=== PATIENT | male | born 1970 | race Caucasian/White ===

== ENCOUNTER 2023-04-21 07:18 | Outpatient (OUT) | payer OTHER, SELFPAY ==
[2023-04-21 07:45] LABS: Estimated Average Glucose 108 mg/dL; Glycohemoglobin A1C 5.4 % (4.5-6.2)
[2023-04-21 08:14] LABS: Basophils Absolute Auto 0.1 10^3/uL (0.0-0.1); Basophils Percent Auto 0.9 % (0.2-2.0); Eosinophils Absolute Auto 0.8 10^3/uL (0.0-0.7); Eosinophils Percent Auto 6.1 % (0.9-7.0); Hematocrit 46.2 % (42.0-54.0); Hemoglobin 15.1 g/dL (14.0-18.0); Immature Granulocytes Abs Auto 0.04 10^3/uL (0.00-0.03); Immature Granulocytes Pct Auto 0.3 % (0.0-0.5); Lymphocytes Absolute Auto 3.7 10^3/uL (1.2-3.8); Lymphocytes Percent Auto 29.5 % (20.5-60.0); Mean Corpuscular HGB Conc 32.7 g/dL (29.9-35.2); Mean Corpuscular Hemoglobin 28.9 pg (25.9-34.0); Mean Corpuscular Volume 88.5 fL (80.0-94.0); Mean Platelet Volume 9.7 fL (9.5-13.5); Monocytes Absolute Auto 0.8 10^3/uL (0.3-0.8); Monocytes Percent Auto 6.1 % (1.7-12.0); Neutrophils Absolute Auto 7.2 10^3/uL (1.4-6.5); Neutrophils Percent Auto 57.1 % (43.0-75.0); Platelet Count 386 10^3/uL (150-450); Red Blood Count 5.22 10^6/uL (4.70-6.10); Red Cell Distribution Width 13.3 % (11.0-15.0); White Blood Count 12.6 10^3/uL (4.0-11.0)
[2023-04-21 08:53] LABS: Free T4 0.92 ng/dL (0.76-1.46)
[2023-04-21 09:02] LABS: Alanine Aminotransferase 51 U/L (16-63); Albumin Globulin Ratio 0.9; Albumin Level 3.4 g/dL (3.4-5.0); Alkaline Phosphatase 113 U/L (46-116); Anion Gap 13.6; Aspartate Amino Transferase 22 U/L (15-37); BUN Creatinine Ratio 10.5; Bilirubin Total 0.3 mg/dL (0.2-1.0); Calcium 8.7 mg/dL (8.5-10.1); Carbon Dioxide 28.3 mmol/L (21.0-32.0); Chloride 105 mmol/L (98-107); Chol HDL Ratio 4.7; Cholesterol 178 mg/dL (<=200); Estimated GFR (African America >60 (>=60); Estimated GFR (Non-African Ame >60 (>=60); Globulin 3.9 g/dL; Glucose 107 mg/dL (74-106); HDL Cholesterol 38 mg/dL (40-60); Potassium 3.9 mmol/L (3.5-5.1); Prostate Specific Antigen Scrn 1.87 ng/mL (<=4.00); Sodium 143 mmol/L (136-145); Thyroid Stimulating Hormone 1.331 uIU/mL (0.358-3.740); Total Protein 7.3 g/dL (6.4-8.2); Triglycerides 100 mg/dL (<=150); Uric Acid 6.8 mg/dL (3.5-7.2)
== END 2023-04-21 07:19 | disposition home or self-care (01) ==
PROVIDERS: PCP Family Medicine; Visit Provider Family Medicine
DX: Z00.00 Encounter for general adult medical examination without abnormal findings (principal); E78.5 Hyperlipidemia, unspecified; R73.09 Other abnormal glucose; Z12.5 Encounter for screening for malignant neoplasm of prostate; Z12.12 Encounter for screening for malignant neoplasm of rectum
CPT/HCPCS: 36415; 80053; 80061; 83036; 84436; 84439; 84443; 84550; 85025; G0103

== ENCOUNTER 2024-02-22 06:32 | Outpatient (OUT) | payer OTHER, SELFPAY ==
--- OUTSIDE RECORDS SUMMARY | 2024-02-22 06:35 | XMS_ITS | CCD ---
Author Organization [facility] Care Team Providers Care Batch Operator Name Role Phone DONALDO, DR VALDEZ Consulting Unavailable PAVANY, DR VALDEZ Primary Care Unavailable HOY, DR VALDEZ Admitting Unavailable HOY, DR VALDEZ Attending Unavailable HOY, DR VALDEZ Primary Care Unavailable HOY, DR VALDEZ Admitting Unavailable HOY, DR VALDEZ Attending Unavailable HOY, DR VALDEZ Consulting Unavailable HOY, DR VALDEZ Primary Care Unavailable HOY, DR VALDEZ Admitting Unavailable HOY, DR VALDEZ Attending Unavailable HOY, DR VALDEZ Consulting Unavailable PAVANY, DR VALDEZ Primary Care Unavailable HOY, DR VALDEZ Admitting Unavailable HOY, DR VALDEZ Attending Unavailable HOY, DR VALDEZ Attending Unavailable HOY, DR VALDEZ Consulting Unavailable HOY, DR VALDEZ Primary Care Unavailable HOY, DR VALDEZ Admitting Unavailable ALDA WATKINS Consulting Unavailable Allergies Allergy Classification Reported Allergen(s) Allergy Type Date of Onset Reaction(s) Facility (1 source) Acetaminophen / HYDROcodone Drug Allergy 4 [facility] Repository (1 source) Codeine Drug Allergy 4 [facility] Repository (1 source) methylPREDNISolone Drug Allergy 4 [facility] Repository (1 source) zolpidem Drug Allergy 4 [facility] Repository Problems Problem Classification Problem Date Documented Da te Episodic/Chronic Other screening for suspected conditions (not mental disorders or infectious disease) (2 sources) Encounter for screening for malignant neoplasm of prostate; Translations: [Other specified abnormal findings of blood chemistry] Onset: 06-01-2021 Episodic Results Test Name Value Interpretation Reference Range Facility CT LUNG CANCER SCREENINGon 0 02-25-[address] Low Dose Lung Cancer Screening History: Screening for lung cancer, smoking. Comparison: None Technique: Helical acquisition Low dose CT chest. Images reviewed in lung, soft tissue and bone windows. Findings: [All follow up of nodules are based on ACR guidelines for lung cancer screening and measurements of each nodule size must be the mean of the longest 2 axial plane perpendiculars] Nodules: The largest and/or fastest of these nodule(s) are as follows: No suspicious pulmonary nodules by size criteria. There is a calcified granuloma in the left upper lobe on image 40. Emphysema: Moderate centrilobular and paraseptal, including the paramediastinal regions and with some bullous changes in the lung apices. Mosaic attenuation: No Bronchial wall thickening: No. Bronchiectasis: No Coronary artery calcium: Minimal Other portions of the chest: Normal size heart, thoracic aorta and pulmonary artery. No suspicious lymphadenopathy. Left hilar calcified lymph nodes representing sequelae of granulomatous disease. Upper abdomen: Limited. Low-density is otherwise simple appearing right renal cyst is only partially seen. Bones: No suspicious lesion Impression: 1. ACR Assessment Category: Lung-RADS Category 2. Benign appearance or behavior. . Recommendation: Lung-RADS Category 2. Benign appearance or behavior. Recommendation: continue annual screening. . Download the LungRADS Assessment Categories table at this site: [email or web address] [email or web address] Electronically authenticated by: ALDA WATKINS Date: 2022-02-25 17:52 Normal [facility] INSULINon 02-20-2022 Insulin 23.0 uIU/mL Normal 2.6-24.9 [facility] Comment on above: Performed By: #### I NSULIN #### [facility] [address] [address] [address] Dawna Murillo CBC AUTO DIFFon 02-18-2022 BASO # 0.1 103/ul Normal 0.0-0.1 [facility] Comment on above: Performed By: #### C BC #### [facility] [address] [place], [place] [address] Dr. Dawna Murillo Basophils/100 WBC (Bld) 0.8 % Normal 0.2-2.0 [facility] Comment on above: Performed By: #### C BC #### [facility] [address] [place], [place] [address] Dr. Dawna Murillo EO # 0.9 103/ul Critically high 0.0-0.7 [facility] Comment on above: Performed By: #### C BC #### [facility] [address] [place] [address] Dr. Dawna Murillo Eosinophils/100 WBC (Bld) 6.2 % Normal 0.9-7.0 [facility] Comment on above: Performed By: #### C BC #### [facility] [address] [place] [address] Dr. Dawna Murillo Erythrocyte distribution width (RBC) [Ratio] 13.1 % Normal 11.0-15.0 [facility] Comment on above: Performed By: #### C BC #### [facility] [address] [place] [address] Dr. Dawna Murillo Hematocrit (Bld) [Volume fraction] 47.3 % Normal 42.0-54.0 [facility] Comment on above: Performed By: #### C BC #### [facility] [address] [place] [address] Dr. Dawna Murillo Hemoglobin (Bld) [Mass/Vol] 16.0 g/dL Normal 14.0-18.0 [facility] Comment on above: Performed By: #### C BC #### [facility] [address] [place] [address] Dr. Dawna Murillo IG # 0.03 10e3/ul Normal 0.00-0.03 [facility] Comment on above: Performed By: #### C BC #### [facility] [address] [place] [address] Dr. Dawna Murillo IG % 0.2 % Normal 0.0-0.5 [facility] Comment on above: Performed By: #### C BC #### [facility] [address] [place] [address] Dr. Dawna Murillo LYMPH # 3.2 103/ul Normal 1.2-3.8 [facility] Comment on above: Performed By: #### C BC #### [facility] [address] [place] [address] Dr. Dawna Murillo Lymphocytes/100 WBC (Bld) 21.1 % Normal 20.5-60.0 [facility] Comment on above: Performed By: #### C BC #### [facility] [address] [place] [address] Dr. Dawna Murillo MANUAL DIFF REQ NO Normal [facility] Comment on above: Performed By: #### C BC #### [facility] [address] [place] [address] Dr. Dawna Murillo MCH (RBC) [Entitic mass] 28.8 pg Normal 25.9-34.0 [facility] Comment on above: Performed By: #### C BC #### [facility] [address] [place] [address] Dr. Dawna Murillo MCHC (RBC) [Mass/Vol] 33.8 g/dL Normal 29.9-35.2 [facility] Comment on above: Performed By: #### C BC #### [facility] [address] [place] [address] Dr. Dawna Murillo MCV (RBC) [Entitic vol] 85.2 fL Normal 80.0-94.0 [facility] Comment on above: Performed By: #### C BC #### [facility] [address] [place] [address] Dr. Dawna Muirllo MONO # 0.9 103/ul Critically high 0.3-0.8 [facility] Comment on above: Performed By: #### C BC #### [facility] [address] [place] [address] Dr. Dawna Murillo Monocytes/100 WBC (Bld) 6.0 % Normal 1.7-12.0 [facility] Comment on above: Performed By: #### C BC #### [facility] [address] [place] [address] Dr. Dawna Murillo NEUT # 9.9 103/ul Critically high 1.4-6.5 [facility] Comment on above: Performed By: #### C BC #### [facility] [address] [place] [address] Dr. Dawna Murillo Neutrophils/100 WBC (Bld) 65.7 % Normal 43.0-75.0 [facility] Comment on above: Performed By: #### C BC #### [facility] [address] [address] [address] Dawna Murillo Platelet mean volume (Bld) [Entitic vol] 8.6 fL Critically low 9.5-13.5 [facility] Comment on above: Performed By: #### C BC #### [facility] [address] [address] [address] Dawna Murillo PLT 424 103/ul Normal 150-450 [facility] Comment on above: Performed By: #### C BC #### [facility] [address] [address] [address] Dawna Murillo RBC 5.55 106/ul Normal 4.70-6.10 [facility] Comment on above: Performed By: #### C BC #### [facility] [address] [place] [address] Dr. Dawna Murillo WBC 15.1 103/ul Critically high 4.0-11.0 [facility] Comment on above: Performed By: #### C BC #### [facility] [address] [place] [address] Dr. Dawna Murillo GLYCOHEMOGLOBIN A1Con 2022 ADA RECOMMENDATION SEE BELOW Normal [facility] Comment on above: Result Comment: ADA RECOMMENDED LIMIT 4.0 - 6.0 ADA THERAPEUTIC TARGET < 7.0 ACTION SUGGESTED > 7.0 Performed By: #### A 1C #### [facility] [address] [place] [address] Dr. Dawna Murillo Glucose [Mass/Vol] 105 mg/dL Normal [facility] Comment on above: Performed By: #### A 1C #### [facility] [address] [place] [address] Dr. Dawna Murillo HbA1c (Bld) [Mass fraction] 5.3 % Normal 4.5-6.2 [facility] Comment on above: Performed By: #### A 1C #### [facility] [address] [place] [address] Dr. Dawna Murillo LIPID PROFILEon 02-18-2022 CHOL-HDL RATIO NORM SEE BELOW Normal [facility] Comment on above: Result Comment: 3.3 - 4.4 LOW RISK 4.4 - 7.1 AVERAGE RISK 7.1 - 11.0 MODERATE RISK >11.0 HIGH RISK Performed By: #### O BSCRN #### [facility] [address] [address] [address] Dawna Murillo Cholesterol [Mass/Vol] 153 mg/dL Normal <=200 [facility] Comment on above: Performed By: #### O BSCRN #### [facility] [address] [address] [address] Dawna Murillo Cholesterol in HDL [Mass/Vol] 37 mg/dL Critically low 40-60 [facility] Comment on above: Performed By: #### O BSCRN #### [facility] [address] [address] [address] Dawna Murillo Cholesterol in LDL [Mass/Vol] 93.2 mg/dL Normal [facility] Comment on above: Performed By: #### O BSCRN #### [facility] [address] [address] [address] Dawna Murillo Cholesterol.total/Cho lesterol in HDL [Mass ratio] 4.1 {ratio} Normal [facility] Comment on above: Performed By: #### O BSCRN #### [facility] [address] [address] [address] Dawna Murillo HDL NORMAL > or = 60 mg/dl - LO W CARDIOVASCULAR RISK <40 mg/dl - HIGH CARDIOVASCULAR RISK Normal [facility] Comment on above: Performed By: #### O BSCRN #### [facility] [address] [address] [address] Dawna Murillo LDL CALC NORMAL SEE BELOW Normal [facility] Comment on above: Result Comment: <100 mg/dl OPTIMAL 100 - 129 mg/dl NEAR OR ABOVE OPTIMAL 130 - 159 mg/dl BORDERLINE HIGH 160 - 189 mg/dl HIGH >190 mg/dl VERY HIGH Performed By: #### O BSCRN #### [facility] [address] [address] [address] Dawna Murillo Triglyceride [Mass/Vol] 114 mg/dL Normal <=150 [facility] Comment on above: Performed By: #### O BSCRN #### [facility] [address] [address] [address] Dawna Murillo VLDL CALC 22.8 mg/dL Normal [facility] Comment on above: Performed By: #### O BSCRN #### [facility] [address] [address] [address] Dawna Murillo PROF 14(COMP METB)on 023 Albumin [Mass/Vol] 3.7 g/dL Normal 3.4-5.0 [facility] Comment on above: Performed By: #### O BSCRN #### [facility] [address] [address] [address] Dawna Murillo Albumin/Globulin [Mass ratio] 0.8 {ratio} Normal [facility] Comment on above: Performed By: #### O BSCRN #### [facility] [address] [place] [address] Dr. Dawna Murillo ALP [Catalytic activity/Vol] 112 U/L Normal 46-116 [facility] Comment on above: Performed By: #### O BSCRN #### [facility] [address] [address] [address] Dawna Murillo ALT [Catalytic activity/Vol] 24 U/L Normal 16-63 [facility] Comment on above: Performed By: #### O BSCRN #### [facility] [address] [address] [address] Dawna Murillo Anion gap [Moles/Vol] 13.6 mmol/L Normal [facility] Comment on above: Performed By: #### O BSCRN #### [facility] [address] [address] [address] Dawna Murillo AST [Catalytic activity/Vol] 18 U/L Normal 15-37 [facility] Comment on above: Performed By: #### O BSCRN #### [facility] [address] [address] [address] Dawna Murillo Bilirubin [Mass/Vol] 0.2 mg/dL Normal 0.2-1.0 [facility] Comment on above: Performed By: #### O BSCRN #### [facility] [address] [address] [address] Dawna Murillo Calcium [Mass/Vol] 9.2 mg/dL Normal 8.5-10.1 [facility] Comment on above: Performed By: #### O BSCRN #### [facility] [address] [address] [address] Dawna Murillo Chloride [Moles/Vol] 106 mmol/L Normal 98-107 [facility] Comment on above: Performed By: #### O BSCRN #### [facility] [address] [address] [address] Dawna Murillo CO2 [Moles/Vol] 28.2 mmol/L Normal 21.0-32.0 [facility] Comment on above: Performed By: #### O BSCRN #### [facility] [address] [place] [address] Dr. Dawna Murillo Creatinine [Mass/Vol] 0.91 mg/dL Normal 0.70-1.30 [facility] Comment on above: Performed By: #### O BSCRN #### [facility] [address] [address] [address] Dawna Murillo EGFR-AF BRAZILIAN >60 Normal >=60 [facility] Comment on above: Performed By: #### O BSCRN #### [facility] [address] [address] [address] Dawna Murillo EGFR-NON AF BRAZILIAN >60 Normal >=60 [facility] Comment on above: Performed By: #### O BSCRN #### [facility] [address] [address] [address] Dawna Murillo Globulin (S) [Mass/Vol] 4.4 g/dL Normal [facility] Comment on above: Performed By: #### O BSCRN #### [facility] [address] [address] [address] Dawna Murillo Glucose [Mass/Vol] 101 mg/dL Normal 74-106 [facility] Comment on above: Performed By: #### O BSCRN #### [facility] [address] [address] [address] Dawna Murillo Potassium [Moles/Vol] 3.8 mmol/L Normal 3.5-5.1 [facility] Comment on above: Performed By: #### O BSCRN #### [facility] [address] [address] [address] Dawna Murillo Protein [Mass/Vol] 8.1 g/dL Normal 6.4-8.2 [facility] Comment on above: Performed By: #### O BSCRN #### [facility] [address] [place] [address] Dr. Dawna Murillo Sodium [Moles/Vol] 144 mmol/L Normal 136-145 [facility] Comment on above: Performed By: #### O BSCRN #### [facility] [address] [place] [address] Dr. Dawna Murillo Urea nitrogen [Mass/Vol] 8.0 mg/dL Normal 7.0-18.0 [facility] Comment on above: Performed By: #### O BSCRN #### [facility] [address] [address] [address] Dawna Murillo Urea nitrogen/Creatinine [Mass ratio] 8.8 mg/mg Normal [facility] Comment on above: Performed By: #### O BSCRN #### [facility] [address] [place] [address] Dr. Dawna Murillo URIC ACID SERUMon 02-18-2022 Urate [Mass/Vol] 5.6 mg/dL Normal 3.5-7.2 [facility] Comment on above: Performed By: #### O BSCRN #### [facility] [address] [address] [address] Dawna Murillo OCC BLD IMMUNO SCREENon 05-08 OCCULT BLOOD Negative Normal NEGATIVE [facility] Comment on above: Performed By: #### O BSCRN #### [facility] [address] [place] [address] Dr. Dawna Murillo CBC AUTO DIFFon 04-26-2022 BASO # 0.1 103/ul Normal 0.0-0.1 [facility] Comment on above: Performed By: #### C BC #### [facility] [address] [place] [address] Dr. Dawna Murillo Basophils/100 WBC (Bld) 0.8 % Normal 0.2-2.0 [facility] Comment on above: Performed By: #### C BC #### [facility] [address] [place] [address] Dr. Dawna Murillo EO # 1.1 103/ul Critically high 0.0-0.7 [facility] Comment on above: Performed By: #### C BC #### [facility] [address] [place] [address] Dr. Dawna Murillo Eosinophils/100 WBC (Bld) 7.0 % Normal 0.9-7.0 [facility] Comment on above: Performed By: #### C BC #### [facility] [address] [place] [address] Dr. Dawna Murillo Erythrocyte distribution width (RBC) [Ratio] 13.0 % Normal 11.0-15.0 [facility] Comment on above: Performed By: #### C BC #### [facility] [address] [place] [address] Dr. Dawna Murillo Hematocrit (Bld) [Volume fraction] 46.1 % Normal 42.0-54.0 [facility] Comment on above: Performed By: #### C BC #### [facility] [address] [place] [address] Dr. Dawna Murillo Hemoglobin (Bld) [Mass/Vol] 15.3 g/dL Normal 14.0-18.0 [facility] Comment on above: Performed By: #### C BC #### [facility] [address] [place] [address] Dr. Dawna Murillo IG # 0.05 10e3/ul Critically high 0.00-0.03 [place] Comment on above: Performed By: #### C BC #### [facility] [address] [place] [address] Dr. Dawna Murillo IG % 0.3 % Normal 0.0-0.5 [facility] Comment on above: Performed By: #### C BC #### [facility] [address] [place] [address] Dr. Dawna Murillo LYMPH # 4.0 103/ul Critically high 1.2-3.8 [facility] Comment on above: Performed By: #### C BC #### [facility] [address] [place] [address] Dr. Dawna Murillo Lymphocytes/100 WBC (Bld) 25.3 % Normal 20.5-60.0 [facility] Comment on above: Performed By: #### C BC #### [facility] [address] [place] [address] Dr. Dawna Murillo MANUAL DIFF REQ NO Normal [facility] Comment on above: Performed By: #### C BC #### [facility] [address] [place] [address] Dr. Dawna Murillo MCH (RBC) [Entitic mass] 29.1 pg Normal 25.9-34.0 [facility] Comment on above: Performed By: #### C BC #### [facility] [address] [place] [address] Dr. Dawna Murillo MCHC (RBC) [Mass/Vol] 33.2 g/dL Normal 29.9-35.2 [facility] Comment on above: Performed By: #### C BC #### [facility] [address] [place] [address] Dr. Dawna Murillo MCV (RBC) [Entitic vol] 87.8 fL Normal 80.0-94.0 [facility] Comment on above: Performed By: #### C BC #### [facility] [address] [place] [address] Dr. Dawna Murillo MONO # 0.9 103/ul Critically high 0.3-0.8 [facility] Comment on above: Performed By: #### C BC #### [facility] [address] [place] [address] Dr. Dawna Murillo Monocytes/100 WBC (Bld) 5.9 % Normal 1.7-12.0 [facility] Comment on above: Performed By: #### C BC #### [facility] [address] [address] [address] Dawna Murillo NEUT # 9.6 103/ul Critically high 1.4-6.5 [facility] Comment on above: Performed By: #### C BC #### [facility] [address] [address] [address] Dawna Murillo Neutrophils/100 WBC (Bld) 60.7 % Normal 43.0-75.0 [facility] Comment on above: Performed By: #### C BC #### [facility] [address] [place] [address] Dr. Dawna Murillo Platelet mean volume (Bld) [Entitic vol] 8.7 fL Critically low 9.5-13.5 [facility] Comment on above: Performed By: #### C BC #### [facility] [address] [place] [address] Dr. Dawna Murillo PLT 385 103/ul Normal 150-450 [facility] Comment on above: Performed By: #### C BC #### [facility] [address] [place] [address] Dr. Dawna Murillo RBC 5.25 106/ul Normal 4.70-6.10 [facility] Comment on above: Performed By: #### C BC #### [facility] [address] [place] [address] Dr. Dawna Murillo WBC 15.9 103/ul Critically high 4.0-11.0 [facility] Comment on above: Performed By: #### C BC #### [facility] [address] [place] [address] Dr. Dawna Murillo GLYCOHEMOGLOBIN A1Con 2021 ADA RECOMMENDATION SEE BELOW Normal [facility] Comment on above: Result Comment: ADA RECOMMENDED LIMIT 4.0 - 6.0 ADA THERAPEUTIC TARGET < 7.0 ACTION SUGGESTED > 7.0 Performed By: #### O BSCRN #### [facility] [address] [place] [address] Dr. Dawna Murillo Glucose [Mass/Vol] 108 mg/dL Normal [facility] Comment on above: Performed By: #### O BSCRN #### [facility] [address] [address] [address] Dawna Murillo HbA1c (Bld) [Mass fraction] 5.4 % Normal 4.5-6.2 [facility] Comment on above: Performed By: #### O BSCRN #### [facility] [address] [address] [address] Dawna Murillo LIPID PROFILEon 05-31-2021 CHOL-HDL RATIO NORM SEE BELOW Normal [facility] Comment on above: Result Comment: 3.3 - 4.4 LOW RISK 4.4 - 7.1 AVERAGE RISK 7.1 - 11.0 MODERATE RISK >11.0 HIGH RISK Performed By: #### C MP, LIPID #### [facility] [address] [address] [address] Dawna Murillo Cholesterol [Mass/Vol] 159 mg/dL Normal <=200 [facility] Comment on above: Performed By: #### C MP, LIPID #### [facility] [address] [address] [address] Dawna Murillo Cholesterol in HDL [Mass/Vol] 37 mg/dL Critically low 40-60 [facility] Comment on above: Performed By: #### C MP, LIPID #### [facility] [address] [address] [address] Dawna Murillo Cholesterol in LDL [Mass/Vol] 98.2 mg/dL Normal [facility] Comment on above: Performed By: #### C MP, LIPID #### [facility] [address] [address] [address] Dawna Murillo Cholesterol.total/Cho lesterol in HDL [Mass ratio] 4.3 {ratio} Normal [facility] Comment on above: Performed By: #### C MP, LIPID #### [facility] [address] [address] [address] Dawna Murillo HDL NORMAL > or = 60 mg/dl - LO W CARDIOVASCULAR RISK <40 mg/dl - HIGH CARDIOVASCULAR RISK Normal [facility] Comment on above: Performed By: #### C MP, LIPID #### [facility] [address] [address] [address] Dawna Murillo LDL CALC NORMAL SEE BELOW Normal [facility] Comment on above: Result Comment: <100 mg/dl OPTIMAL 100 - 129 mg/dl NEAR OR ABOVE OPTIMAL 130 - 159 mg/dl BORDERLINE HIGH 160 - 189 mg/dl HIGH >190 mg/dl VERY HIGH Performed By: #### C MP, LIPID #### [facility] [address] [address] [address] Dawna Murillo Triglyceride [Mass/Vol] 119 mg/dL Normal <=150 [facility] Comment on above: Performed By: #### C MP, LIPID #### [facility] [address] [address] [address] Dawna Murillo VLDL CALC 23.8 mg/dL Normal [facility] Comment on above: Performed By: #### C MP, LIPID #### [facility] [address] [address] [address] Dawna Murillo PERIPHERAL SMEARon 2 Pathologist Cyto stain Nom (Cvx/Vag) [ID] DR. ARMOND BARRERA Normal [facility] Comment on above: Result Comment: Mild neutropilia, Mild lymphocytosis with occassional atypical lymphocytes. Rule out infectious process. CPT 73640 Performed By: #### P ERSMR #### [facility] [address] [place] [address] Dr. Dawna Murillo PROF 14(COMP METB)on 022 Albumin [Mass/Vol] 3.6 g/dL Normal 3.4-5.0 [facility] Comment on above: Performed By: #### C MP, LIPID #### [facility] [address] [address] [address] Dawna Murillo Albumin/Globulin [Mass ratio] 0.9 {ratio} Normal [facility] Comment on above: Performed By: #### C MP, LIPID #### [facility] [address] [address] [address] Dawna Murillo ALP [Catalytic activity/Vol] 96 U/L Normal 46-116 [facility] Comment on above: Performed By: #### C MP, LIPID #### [facility] [address] [address] [address] Dawna Murillo ALT [Catalytic activity/Vol] 32 U/L Normal 16-63 [facility] Comment on above: Performed By: #### C MP, LIPID #### [facility] [address] [address] [address] Dawna Murilol Anion gap [Moles/Vol] 12.3 mmol/L Normal [facility] Comment on above: Performed By: #### C MP, LIPID #### [facility] [address] [address] [address] Dawna Murillo AST [Catalytic activity/Vol] 16 U/L Normal 15-37 [facility] Comment on above: Performed By: #### C MP, LIPID #### [facility] [address] [address] [address] Dawna Murillo Bilirubin [Mass/Vol] 0.3 mg/dL Normal 0.2-1.0 [facility] Comment on above: Performed By: #### C MP, LIPID #### [facility] [address] [address] [address] Dawna Murillo Calcium [Mass/Vol] 8.8 mg/dL Normal 8.5-10.1 [facility] Comment on above: Performed By: #### C MP, LIPID #### [facility] [address] [address] [address] Dawna Murillo Chloride [Moles/Vol] 104 mmol/L Normal 98-107 [facility] Comment on above: Performed By: #### C MP, LIPID #### [facility] [address] [address] [address] Dawna Murillo CO2 [Moles/Vol] 26.6 mmol/L Normal 21.0-32.0 [facility] Comment on above: Performed By: #### C MP, LIPID #### [facility] [address] [address] [address] Dawna Murillo Creatinine [Mass/Vol] 0.76 mg/dL Normal 0.70-1.30 [facility] Comment on above: Performed By: #### C MP, LIPID #### [facility] [address] [address] [address] Dawna Murillo EGFR-AF BRAZILIAN >60 Normal >=60 [facility] Comment on above: Performed By: #### C MP, LIPID #### [facility] [address] [address] [address] Dawna Murillo EGFR-NON AF BRAZILIAN >60 Normal >=60 [facility] Comment on above: Performed By: #### C MP, LIPID #### [facility] [address] [address] [address] Dawna Murillo Globulin (S) [Mass/Vol] 3.8 g/dL Normal [facility] Comment on above: Performed By: #### C MP, LIPID #### [facility] [address] [address] [address] Dawna Murillo Glucose [Mass/Vol] 117 mg/dL Critically high 74-106 [facility] Comment on above: Performed By: #### C MP, LIPID #### [facility] [address] [address] [address] Dawna Murillo Potassium [Moles/Vol] 3.9 mmol/L Normal 3.5-5.1 [facility] Comment on above: Performed By: #### C MP, LIPID #### [facility] [address] [address] [address] Dawna Murillo Protein [Mass/Vol] 7.4 g/dL Normal 6.1-8.2 [facility] Comment on above: Performed By: #### C MP, LIPID #### [facility] [address] [address] [address] Dawna Murillo Sodium [Moles/Vol] 139 mmol/L Normal 136-145 [facility] Comment on above: Performed By: #### C MP, LIPID #### [facility] [address] [address] [address] Dawna Murillo Urea nitrogen [Mass/Vol] 14.0 mg/dL Normal 7.0-18.0 [facility] Comment on above: Performed By: #### C MP, LIPID #### [facility] [address] [address] [address] Dawna Murillo Urea nitrogen/Creatinine [Mass ratio] 18.4 mg/mg Normal [facility] Comment on above: Performed By: #### C MP, LIPID #### [facility] [address] [address] [address] Dawna Murillo Encounters Encounter Date Encounter Type Care Provider Facility Start: 02-25-2022 Encounter for genera l adult medical examination without abnormal findings DR COURTNEY FULTON [facility] Start: 02-25-2022 End: 02-26-[address] COURTNEY FULTON Facility:[facility] Start: 02-18-2022 End: 02-19-[address] COURTNEY FLUTON Facility:[facility] Start: 02-18-2022 End: 02-19-2022 Encounter for general adult medical examination without abnormal findings DR COURTNEY FULTON Facility:[facility] Start: 06-30-[address] COURTNEY FULTON Facility :[facility] Start: 06-04-2021 End: 06-04-[address] COURTNEY FULTON Facility:[facility] Start: 05-31-2021 End: 06-01-[address] COURTNEY FULTON Facility:[facility] Procedures Date Procedure Procedure Detail Performing Clinician Start: 02-18-[address] ARLETH FULTON Comment on above: Performed By: #### O BSCRN #### [facility] [address] [place] [address] Dr. Dawna Murillo Start: 05-31-[address] ARLETH FULTON Comment on above: Performed By: #### P SAS #### [facility] [address] [address] [address] Dawna Murillo Payers Date Payer Category Payer Unknown [id number] 2.16.84 [id number] 1971 Unknown [id number] 2.16.84 [id number] 1971 Unknown [id number] 2.16.84 [id number] 1971 Unknown [id number] 2.16.84 [id number] 1971 Unknown [id number] 2.16.84 [id number] 1959 Self-pay 1958 Unknown [id number] Summary Purpose Family History No Family History Records Found Advance Directives No Advanced Directives Records Found Additional Source Comments (unrecognized sect ion and content) No Status Records Found INFORMATION SOURCE (unrecogn ized section and content) DATE CREATED AUTHOR 02/28/[address] [facility] FOR RECORDS PERTAINING TO PATIENTS WHO ARE OR HAVE BEEN ENROLLED IN A CHEMICAL DEPENDENCY/SUBSTANCEABUSE PROGRAM, SOME INFORMATION MAY BE OMITTED. This clinical summary was aggregated from multiple sources. Caution should be exercised in using it in the provision of clinical care. This summary normalizes information from multiple sources, and as a consequence, information in this document may materially change the coding, format and clinical context of patient data. In addition, data may be omitted in some cases. CLINICAL DECISIONS SHOULD BE BASED ON THE PRIMARY CLINICAL RECORDS. [facility] [employer] [facility]. provides no warranty or guarantee of the accuracy or completeness of information in this document.
[2024-02-22 07:05] LABS: Estimated Average Glucose 114 mg/dL; Glycohemoglobin A1C 5.6 % (4.5-6.2)
[2024-02-22 07:33] LABS: Basophils Absolute Auto 0.1 10^3/uL (0.0-0.1); Basophils Percent Auto 0.4 % (0.2-2.0); Eosinophils Absolute Auto 0.6 10^3/uL (0.0-0.7); Eosinophils Percent Auto 4.1 % (0.9-7.0); Hematocrit 41.4 % (42.0-54.0); Hemoglobin 13.8 g/dL (14.0-18.0); Immature Granulocytes Abs Auto 0.05 10^3/uL (0.00-0.03); Immature Granulocytes Pct Auto 0.3 % (0.0-0.5); Mean Corpuscular HGB Conc 33.3 g/dL (29.9-35.2); Mean Corpuscular Hemoglobin 28.5 pg (25.9-34.0); Mean Corpuscular Volume 85.5 fL (80.0-94.0); Mean Platelet Volume 9.5 fL (9.5-13.5); Monocytes Absolute Auto 0.6 10^3/uL (0.3-0.8); Monocytes Percent Auto 4.2 % (1.7-12.0); Neutrophils Absolute Auto 9.6 10^3/uL (1.4-6.5); Platelet Count 337 10^3/uL (150-450); Red Blood Count 4.84 10^6/uL (4.70-6.10); Red Cell Distribution Width 12.6 % (11.0-15.0)
[2024-02-22 08:12] LABS: Alanine Aminotransferase 48 U/L (16-63); Albumin Globulin Ratio 0.8; Albumin Level 3.2 g/dL (3.4-5.0); Alkaline Phosphatase 97 U/L (46-116); Anion Gap 13.7; Aspartate Amino Transferase 23 U/L (15-37); Bilirubin Total 0.3 mg/dL (0.2-1.0); Calcium 8.6 mg/dL (8.5-10.1); Carbon Dioxide 26.3 mmol/L (21.0-32.0); Chloride 106 mmol/L (98-107); Chol HDL Ratio 4.8; Cholesterol 167 mg/dL (<=200); Estimated GFR (African America >60 (>=60 mL/min/1.73m^2); Estimated GFR (Non-African Ame >60 (>=60 mL/min/1.73m^2); Free T3 3.17 pg/mL (2.18-3.98); Globulin 3.8 g/dL; Glucose 145 mg/dL (74-106); HDL Cholesterol 35 mg/dL (40-60); Sodium 142 mmol/L (136-145); Thyroid Stimulating Hormone 1.126 uIU/mL (0.358-3.740); Triglycerides 85 mg/dL (<=150)
[2024-02-22 08:14] LABS: Prostate Specific Antigen Scrn 0.77 ng/mL (<=4.00)
== END 2024-02-22 06:33 | disposition home or self-care (01) ==
LOC: LAB 06:33
PROVIDERS: PCP Family Medicine; Visit Provider Family Medicine
DX: Z00.00 Encounter for general adult medical examination without abnormal findings (principal)
CPT/HCPCS: 36415; 80053; 80061; 83036; 84436; 84443; 84481; 85025; G0103

== ENCOUNTER 2024-03-01 10:09 | Outpatient (OUT) | payer OTHER, SELFPAY ==
--- OUTSIDE RECORDS SUMMARY | 2024-03-01 10:12 | XMS_ITS | CCD ---
Author Organization [facility] Care Team Providers Care Sous Chef Name Role Phone DONALDO, DR VALDEZ Consulting Unavailable HOY, DR VALDEZ [...] VALDEZ Admitting Unavailable ALDA WATKINS Consulting Unavailable Booker BALLESTEROS Attending Unavailable Courtney Fulton Referring Unavailable Allergies Allergy Classification Reported Allergen(s) Allergy [...] INSULINon 02-20-2022 Insulin 23.0 uIU/mL Normal 2.6-24.9 [facility] Comment on above: Performed By: #### I NSULIN #### [facility] [address] [place] [address] Dr. Dawna Murillo CBC AUTO DIFFon 02-18-2022 BASO # 0.1 103/ul Normal 0.0-0.1 [facility] Comment on above: Performed By: #### C BC #### [facility] [address] [address] [address] Dawna Murillo Basophils/100 WBC (Bld) 0.8 % Normal 0.2-2.0 [facility] Comment on above: Performed By: #### C BC #### [facility] [address] [place], [place] [address] Dr. Dawna Murillo EO # 0.9 103/ul Critically high 0.0-0.7 [facility] Comment on above: Performed By: #### C BC #### [facility] [address] [place] [address] Dr. Dawna Murillo Eosinophils/100 WBC (Bld) 6.2 % Normal 0.9-7.0 [facility] Comment on above: Performed By: #### C BC #### [facility] [address] [place] [address] Dr. Dawna Murillo Erythrocyte distribution width (RBC) [Ratio] 13.1 % Normal 11.0-15.0 [facility] Comment on above: Performed By: #### C BC #### [facility] [address] [place] [address] Dr. Dawna Murillo Hematocrit (Bld) [Volume fraction] 47.3 % Normal 42.0-54.0 [facility] Comment on above: Performed By: #### C BC #### [facility] [address] [place] [address] Dr. Dawna Murillo Hemoglobin (Bld) [Mass/Vol] 16.0 g/dL Normal 14.0-18.0 [facility] Comment on above: Performed By: #### C BC #### [facility] [address] [place] [address] Dr. Dawna Murillo IG # 0.03 10e3/ul Normal 0.00-0.03 [facility] Comment on above: Performed By: #### C BC #### [facility] [address] [place] [address] Dr. Dawna Murillo IG % 0.2 % Normal 0.0-0.5 [facility] Comment on above: Performed By: #### C BC #### [facility] [address] [place] [address] Dr. Dawna Murillo LYMPH # 3.2 103/ul Normal 1.2-3.8 [facility] Comment on above: Performed By: #### C BC #### [facility] [address] [place] [address] Dr. Dawna Murillo Lymphocytes/100 WBC (Bld) 21.1 % Normal 20.5-60.0 [facility] Comment on above: Performed By: #### C BC #### [facility] [address] [place] [address] Dr. Dawna Murilol MANUAL DIFF REQ NO Normal [facility] Comment on above: Performed By: #### C BC #### [facility] [address] [place] [address] Dr. Dawna Murillo MCH (RBC) [Entitic mass] 28.8 pg Normal 25.9-34.0 [facility] Comment on above: Performed By: #### C BC #### [facility] [address] [place] [address] Dr. Dawna Murillo MCHC (RBC) [Mass/Vol] 33.8 g/dL Normal 29.9-35.2 [facility] Comment on above: Performed By: #### C BC #### [facility] [address] [place] [address] Dr. Dawna Murillo MCV (RBC) [Entitic vol] 85.2 fL Normal 80.0-94.0 [facility] Comment on above: Performed By: #### C BC #### [facility] [address] [place] [address] Dr. Dawna Murillo MONO # 0.9 103/ul Critically high 0.3-0.[address] [facility] Comment on above: Performed By: #### C BC #### [facility] [address] [place] [address] Dr. Dawna Murillo Monocytes/100 WBC (Bld) 6.0 % Normal 1.7-12.0 [facility] Comment on above: Performed By: #### C BC #### [facility] [address] [place] [address] Dr. Dawna Murillo NEUT # 9.9 103/ul Critically high 1.4-6.5 [facility] Comment on above: Performed By: #### C BC #### [facility] [address] [place] [address] Dr. Dawna Murillo Neutrophils/100 WBC (Bld) 65.7 % Normal 43.0-75.0 [facility] Comment on above: Performed By: #### C BC #### [facility] [address] [place] [address] Dr. Dawna Murillo Platelet mean volume (Bld) [Entitic vol] 8.6 fL Critically low 9.5-13.5 [facility] Comment on above: Performed By: #### C BC #### [facility] [address] [place] [address] Dr. Dawna Murillo PLT 424 103/ul Normal 150-450 [facility] Comment on above: Performed By: #### C BC #### [facility] [address] [place] [address] Dr. Dawna Murillo RBC 5.55 106/ul Normal 4.70-6.10 [facility] Comment on above: Performed By: #### C BC #### [facility] [address] [place] [address] Dr. Dawna Murillo WBC 15.1 103/ul Critically high 4.0-11.0 [facility] Comment on above: Performed By: #### C BC #### [facility] [address] [place] [address] Dr. Dawna Murillo GLYCOHEMOGLOBIN A1Con 2022 ADA RECOMMENDATION SEE BELOW Normal [facility] Comment on above: Result Comment: ADA RECOMMENDED LIMIT 4.0 - 6.0 ADA THERAPEUTIC TARGET < 7.0 ACTION SUGGESTED > 7.0 Performed By: #### A 1C #### [facility] [address] [place] [address] Dr. Dawna Murillo Glucose [Mass/Vol] 105 mg/dL Normal [facility] Comment on above: Performed By: #### A 1C #### [facility] [address] [place] [address] Dr. Dawna Murillo HbA1c (Bld) [Mass fraction] 5.3 % Normal 4.5-6.2 [facility] Comment on above: Performed By: #### A 1C #### [facility] [address] [place] [address] Dr. Dawna Murillo LIPID PROFILEon 02-18-2022 CHOL-HDL RATIO NORM SEE BELOW Normal [facility] Comment on above: Result Comment: 3.3 - 4.4 LOW RISK 4.4 - 7.1 AVERAGE RISK 7.1 - 11.0 MODERATE RISK >11.0 HIGH RISK Performed By: #### O BSCRN #### [facility] [address] [address] [address] Dawna Murillo Cholesterol [Mass/Vol] 153 mg/dL Normal <=200 [facility] Comment on above: Performed By: #### O BSCRN #### [facility] [address] [address] [address] Dawna Murillo Cholesterol in HDL [Mass/Vol] 37 mg/dL Critically low 40-60 [facility] Comment on above: Performed By: #### O BSCRN #### [facility] [address] [address] [address] Dawna Murillo Cholesterol in LDL [Mass/Vol] 93.2 mg/dL Normal [facility] Comment on above: Performed By: #### O BSCRN #### [facility] [address] [address] [address] Dawna Murillo Cholesterol.total/Cho lesterol in HDL [Mass ratio] 4.1 {ratio} Normal [facility] Comment on above: Performed By: #### O BSCRN #### [facility] [address] [address] [address] Dawna Murillo HDL NORMAL > or = 60 mg/dl - LO W CARDIOVASCULAR RISK <40 mg/dl - HIGH CARDIOVASCULAR RISK Normal [facility] Comment on above: Performed By: #### O BSCRN #### [facility] [address] [address] [address] Dawna Murillo LDL CALC NORMAL SEE BELOW Normal [facility] Comment on above: Result Comment: <100 mg/dl OPTIMAL 100 - 129 mg/dl NEAR OR ABOVE OPTIMAL 130 - 159 mg/dl BORDERLINE HIGH 160 - 189 mg/dl HIGH >190 mg/dl VERY HIGH Performed By: #### O BSCRN #### [facility] [address] [address] [address] Dawna Murillo Triglyceride [Mass/Vol] 114 mg/dL Normal <=150 [facility] Comment on above: Performed By: #### O BSCRN #### [facility] [address] [place] [address] Dr. Dawna Murillo VLDL CALC 22.8 mg/dL Normal [facility] Comment on above: Performed By: #### O BSCRN #### [facility] [address] [place] [address] Dr. Dawna Murillo PROF 14(COMP METB)on 023 Albumin [Mass/Vol] 3.7 g/dL Normal 3.4-5.0 [facility] Comment on above: Performed By: #### O BSCRN #### [facility] [address] [place] [address] Dr. Dawna Murillo Albumin/Globulin [Mass ratio] 0.8 {ratio} Normal [facility] Comment on above: Performed By: #### O BSCRN #### [facility] [address] [place] [address] Dr. Dawna Murillo ALP [Catalytic activity/Vol] 112 U/L Normal 46-116 [facility] Comment on above: Performed By: #### O BSCRN #### [facility] [address] [place] [address] Dr. Dawna Murillo ALT [Catalytic activity/Vol] 24 U/L Normal 16-63 [facility] Comment on above: Performed By: #### O BSCRN #### [facility] [address] [place] [address] Dr. Dawna Murillo Anion gap [Moles/Vol] 13.6 mmol/L Normal [facility] Comment on above: Performed By: #### O BSCRN #### [facility] [address] [place] [address] Dr. Dawna Murillo AST [Catalytic activity/Vol] 18 U/L Normal 15-37 [facility] Comment on above: Performed By: #### O BSCRN #### [facility] [address] [place] [address] Dr. Dawna Murillo Bilirubin [Mass/Vol] 0.2 mg/dL Normal 0.2-1.0 [facility] Comment on above: Performed By: #### O BSCRN #### [facility] [address] [place] [address] Dr. Dawna Murillo Calcium [Mass/Vol] 9.2 mg/dL Normal 8.5-10.1 [facility] Comment on above: Performed By: #### O BSCRN #### [facility] [address] [address] [address] Dawna Murillo Chloride [Moles/Vol] 106 mmol/L Normal 98-107 [facility] Comment on above: Performed By: #### O BSCRN #### [facility] [address] [place] [address] Dr. Dawna Murillo CO2 [Moles/Vol] 28.2 mmol/L Normal 21.0-32.0 [facility] Comment on above: Performed By: #### O BSCRN #### [facility] [address] [place] [address] Dr. Dawna Murillo Creatinine [Mass/Vol] 0.91 mg/dL Normal 0.70-1.30 [facility] Comment on above: Performed By: #### O BSCRN #### [facility] [address] [place] [address] Dr. Dawna Murillo EGFR-AF SCOTTISH >60 Normal >=60 [facility] Comment on above: Performed By: #### O BSCRN #### [facility] [address] [place] [address] Dr. Dawna Murillo EGFR-NON AF SCOTTISH >60 Normal >=60 [facility] Comment on above: Performed By: #### O BSCRN #### [facility] [address] [place] [address] Dr. Dawna Murillo Globulin (S) [Mass/Vol] 4.4 g/dL Normal [facility] Comment on above: Performed By: #### O BSCRN #### [facility] [address] [place] [address] Dr. Dawna Murillo Glucose [Mass/Vol] 101 mg/dL Normal 74-106 [facility] Comment on above: Performed By: #### O BSCRN #### [facility] [address] [place] [address] Dr. Dawna Murillo Potassium [Moles/Vol] 3.8 mmol/L Normal 3.5-5.1 [facility] Comment on above: Performed By: #### O BSCRN #### [facility] [address] [place] [address] Dr. Dawna Murillo Protein [Mass/Vol] 8.1 g/dL Normal 6.4-8.2 [facility] Comment on above: Performed By: #### O BSCRN #### [facility] [address] [place] [address] Dr. Dawna Murillo Sodium [Moles/Vol] 144 mmol/L Normal 136-145 [facility] Comment on above: Performed By: #### O BSCRN #### [facility] [address] [place] [address] Dr. Dawna Murillo Urea nitrogen [Mass/Vol] 8.0 mg/dL Normal 7.0-18.0 [facility] Comment on above: Performed By: #### O BSCRN #### [facility] [address] [place] [address] Dr. Dawna Murillo Urea nitrogen/Creatinine [Mass ratio] 8.8 mg/mg Normal [facility] Comment on above: Performed By: #### O BSCRN #### [facility] [address] [place] [address] Dr. Dawna Murillo URIC ACID SERUMon 02-18-2022 Urate [Mass/Vol] 5.6 mg/dL Normal 3.5-7.2 [facility] Comment on above: Performed By: #### O BSCRN #### [facility] [address] [place] [address] Dr. Dawna Murillo OCC BLD IMMUNO SCREENon 05-08 OCCULT BLOOD Negative Normal NEGATIVE [facility] Comment on above: Performed By: #### O BSCRN #### [facility] [address] [place] [address] Dr. Dawna Murillo CBC AUTO DIFFon 05-31-2021 BASO # 0.1 103/ul Normal 0.0-0.1 [facility] Comment on above: Performed By: #### C BC #### [facility] [address] [address] [address] Dawna Murillo Basophils/100 WBC (Bld) 0.8 % Normal 0.2-2.0 [facility] Comment on above: Performed By: #### C BC #### [facility] [address] [address] [address] Dawna Murillo EO # 1.1 103/ul Critically high 0.0-0.7 [facility] Comment on above: Performed By: #### C BC #### [facility] [address] [address] [address] Dawna Murillo Eosinophils/100 WBC (Bld) 7.0 % Normal 0.9-7.0 [facility] Comment on above: Performed By: #### C BC #### [facility] [address] [address] [address] Dawna Murillo Erythrocyte distribution width (RBC) [Ratio] 13.0 % Normal 11.0-15.0 [facility] Comment on above: Performed By: #### C BC #### [facility] [address] [address] [address] Dawna Murillo Hematocrit (Bld) [Volume fraction] 46.1 % Normal 42.0-54.0 [facility] Comment on above: Performed By: #### C BC #### [facility] [address] [address] [address] Dawna Murillo Hemoglobin (Bld) [Mass/Vol] 15.3 g/dL Normal 14.0-18.0 [facility] Comment on above: Performed By: #### C BC #### [facility] [address] [address] [address] Dawna Murillo IG # 0.05 10e3/ul Critically high 0.00-0.03 [facility] Comment on above: Performed By: #### C BC #### [facility] [address] [address] [address] Dawna Murillo IG % 0.3 % Normal 0.0-0.5 [facility] Comment on above: Performed By: #### C BC #### [facility] [address] [place] [address] Dr. Dawna Murillo LYMPH # 4.0 103/ul Critically high 1.2-3.8 [facility] Comment on above: Performed By: #### C BC #### [facility] [address] [place] [address] Dr. Dawna Murillo Lymphocytes/100 WBC (Bld) 25.3 % Normal 20.5-60.0 [facility] Comment on above: Performed By: #### C BC #### [facility] [address] [place] [address] Dr. Dawna Murillo MANUAL DIFF REQ NO Normal [facility] Comment on above: Performed By: #### C BC #### [facility] [address] [place] [address] Dr. Dawna Murillo MCH (RBC) [Entitic mass] 29.1 pg Normal 25.9-34.0 [facility] Comment on above: Performed By: #### C BC #### [facility] [address] [place] [address] Dr. Dawna Murillo MCHC (RBC) [Mass/Vol] 33.2 g/dL Normal 29.9-35.2 [facility] Comment on above: Performed By: #### C BC #### [facility] [address] [place] [address] Dr. Dawna Murillo MCV (RBC) [Entitic vol] 87.8 fL Normal 80.0-94.0 [facility] Comment on above: Performed By: #### C BC #### [facility] [address] [place] [address] Dr. Dawna Murillo MONO # 0.9 103/ul Critically high 0.3-0.8 [facility] Comment on above: Performed By: #### C BC #### [facility] [address] [place] [address] Dr. Dawna Murillo Monocytes/100 WBC (Bld) 5.9 % Normal 1.7-12.0 [facility] Comment on above: Performed By: #### C BC #### [facility] [address] [address] [address] Dawna Murillo NEUT # 9.6 103/ul Critically high 1.4-6.[address] [facility] Comment on above: Performed By: #### C BC #### [facility] [address] [address] [address] Dawna Murillo Neutrophils/100 WBC (Bld) 60.7 % Normal 43.0-75.0 [facility] Comment on above: Performed By: #### C BC #### [facility] [address] [address] [address] Dawna Murillo Platelet mean volume (Bld) [Entitic vol] 8.7 fL Critically low 9.5-13.5 [facility] Comment on above: Performed By: #### C BC #### [facility] [address] [address] [address] Dawna Murillo PLT 385 103/ul Normal 150-450 [facility] Comment on above: Performed By: #### C BC #### [facility] [address] [address] [address] Dawna Murillo RBC 5.25 106/ul Normal 4.70-6.10 [facility] Comment on above: Performed By: #### C BC #### [facility] [address] [address] [address] Dawna Murillo WBC 15.9 103/ul Critically high 4.0-11.0 [facility] Comment on above: Performed By: #### C BC #### [facility] [address] [id number] Dawna Murillo GLYCOHEMOGLOBIN A1Con 2021 ADA RECOMMENDATION SEE BELOW Normal [facility] Comment on above: Result Comment: ADA RECOMMENDED LIMIT 4.0 - 6.0 ADA THERAPEUTIC TARGET < 7.0 ACTION SUGGESTED > 7.0 Performed By: #### O BSCRN #### [facility] [address] [address] [address] Dawna Murillo Glucose [Mass/Vol] 108 mg/dL Normal [facility] Comment on above: Performed By: #### O BSCRN #### [facility] [address] [address] [address] Dawna Murillo HbA1c (Bld) [Mass fraction] 5.4 % Normal 4.5-6.2 [facility] Comment on above: Performed By: #### O BSCRN #### [facility] [address] [address] [address] Dawna Murillo LIPID PROFILEon 05-31-2021 CHOL-HDL RATIO NORM SEE BELOW Normal [facility] Comment on above: Result Comment: 3.3 - 4.4 LOW RISK 4.4 - 7.1 AVERAGE RISK 7.1 - 11.0 MODERATE RISK >11.0 HIGH RISK Performed By: #### C MP, LIPID #### [facility] [address] [place] [address] Dr. Dawna Murillo Cholesterol [Mass/Vol] 159 mg/dL Normal <=200 [facility] Comment on above: Performed By: #### C MP, LIPID #### [facility] [address] [address] [address] Dawna Murillo Cholesterol in HDL [Mass/Vol] 37 mg/dL Critically low 40-60 [facility] Comment on above: Performed By: #### C MP, LIPID #### [facility] [address] [address] [address] Dawna Murillo Cholesterol in LDL [Mass/Vol] 98.2 mg/dL Normal [facility] Comment on above: Performed By: #### C MP, LIPID #### [facility] [address] [address] [address] Dawna Murillo Cholesterol.total/Cho lesterol in HDL [Mass ratio] 4.3 {ratio} Normal [facility] Comment on above: Performed By: #### C MP, LIPID #### [facility] [address] [address] [address] Dawna Murillo HDL NORMAL > or = 60 mg/dl - LO W CARDIOVASCULAR RISK <40 mg/dl - HIGH CARDIOVASCULAR RISK Normal [facility] Comment on above: Performed By: #### C MP, LIPID #### [facility] [address] [place] [address] Dr. Dawna Murillo LDL CALC NORMAL SEE BELOW Normal [facility] Comment on above: Result Comment: <100 mg/dl OPTIMAL 100 - 129 mg/dl NEAR OR ABOVE OPTIMAL 130 - 159 mg/dl BORDERLINE HIGH 160 - 189 mg/dl HIGH >190 mg/dl VERY HIGH Performed By: #### C MP, LIPID #### [facility] [address] [address] [address] Dawna Murillo Triglyceride [Mass/Vol] 119 mg/dL Normal <=150 [facility] Comment on above: Performed By: #### C MP, LIPID #### [facility] [address] [place] [address] Dr. Dawna Murillo VLDL CALC 23.8 mg/dL Normal [facility] Comment on above: Performed By: #### C MP, LIPID #### [facility] [address] [place] [address] Dr. Dawna Murillo PERIPHERAL SMEARon 2 Pathologist Cyto stain Nom (Cvx/Vag) [ID] DR. ARMOND BARRERA Normal [facility] Comment on above: Result Comment: Mild neutropilia, Mild lymphocytosis with occassional atypical lymphocytes. Rule out infectious process. CPT 29384 Performed By: #### P ERSMR #### [facility] [address] [place] [address] Dr. Dawna Murillo PROF 14(COMP METB)on 022 Albumin [Mass/Vol] 3.6 g/dL Normal 3.4-5.0 [facility] Comment on above: Performed By: #### C MP, LIPID #### [facility] [address] [place], [place] [id number] Dr. Dawna Murillo Albumin/Globulin [Mass ratio] 0.9 {ratio} Normal [facility] Comment on above: Performed By: #### C MP, LIPID #### [facility] [address] [place] [address] Dr. Dawna Murillo ALP [Catalytic activity/Vol] 96 U/L Normal 46-116 [facility] Comment on above: Performed By: #### C MP, LIPID #### [facility] [address] [place] [address] Dr. Dawna Murillo ALT [Catalytic activity/Vol] 32 U/L Normal 16-63 [facility] Comment on above: Performed By: #### C MP, LIPID #### [facility] [address] [place] [address] Dr. Dawna Murillo Anion gap [Moles/Vol] 12.3 mmol/L Normal [facility] Comment on above: Performed By: #### C MP, LIPID #### [facility] [address] [place] [address] Dr. Dawna Murillo AST [Catalytic activity/Vol] 16 U/L Normal 15-37 [facility] Comment on above: Performed By: #### C MP, LIPID #### [facility] Laboratory [address] [place] [address] Dr. Dawna Murillo Bilirubin [Mass/Vol] 0.3 mg/dL Normal 0.2-1.0 [facility] Comment on above: Performed By: #### C MP, LIPID #### [facility] [address] [place] [address] Dr. Dawna Murillo Calcium [Mass/Vol] 8.8 mg/dL Normal 8.5-10.1 [facility] Comment on above: Performed By: #### C MP, LIPID #### [facility] [address] [place] [address] Dr. Dawna Murillo Chloride [Moles/Vol] 104 mmol/L Normal 98-107 [facility] Comment on above: Performed By: #### C MP, LIPID #### [facility] [address] [place] [address] Dr. Dawna Murillo CO2 [Moles/Vol] 26.6 mmol/L Normal 21.0-32.0 [facility] Comment on above: Performed By: #### C MP, LIPID #### [facility] [address] [place] [address] Dr. Dawna Murillo Creatinine [Mass/Vol] 0.76 mg/dL Normal 0.70-1.30 [facility] Comment on above: Performed By: #### C MP, LIPID #### [facility] [address] [place] [address] Dr. Dawna Murillo EGFR-AF SCOTTISH >60 Normal >=60 [facility] Comment on above: Performed By: #### C MP, LIPID #### [facility] [address] [address] [address] Dawna Murillo EGFR-NON AF SCOTTISH >60 Normal >=60 [facility] Comment on above: Performed By: #### C MP, LIPID #### [facility] [address] [place] [address] Dr. Dawna Murillo Globulin (S) [Mass/Vol] 3.8 g/dL Normal [facility] Comment on above: Performed By: #### C MP, LIPID #### [facility] [address] [place] [address] Dr. Dawna Murillo Glucose [Mass/Vol] 117 mg/dL Critically high 74-106 [facility] Comment on above: Performed By: #### C MP, LIPID #### [facility] [address] [place] [address] Dr. Dawna Murillo Potassium [Moles/Vol] 3.9 mmol/L Normal 3.5-5.1 [facility] Comment on above: Performed By: #### C MP, LIPID #### [facility] [address] [place] [address] Dr. Dawna Murillo Protein [Mass/Vol] 7.4 g/dL Normal 6.1-8.2 [facility] Comment on above: Performed By: #### C MP, LIPID #### [facility] [address] [place] [address] Dr. Dawna Murillo Sodium [Moles/Vol] 139 mmol/L Normal 136-145 [facility] Comment on above: Performed By: #### C MP, LIPID #### [facility] [address] [place] [address] Dr. Dawna Murillo Urea nitrogen [Mass/Vol] 14.0 mg/dL Normal 7.0-18.0 [facility] Comment on above: Performed By: #### C MP, LIPID #### [facility] [address] [address] [address] Dawna Murillo Urea nitrogen/Creatinine [Mass ratio] 18.4 mg/mg Normal [facility] Comment on above: Performed By: #### C MP, LIPID #### [facility] [address] [address] [address] Dawna Murillo Encounters Encounter Date Encounter Type Care Provider Facility Start: 03-07-2024 ambulatory Booker BALLESTEROS Facility :[facility] Start: 02-26-2024 ambulatory Booker BALLESTEROS Facility:[facility] [place] Start: 02-25-2024 ambulatory Booker BALLESTEROS Facility:[facility] Cazares Start: 02-25-2022 Encounter for genera l adult medical examination without abnormal findings DR COURTNEY FULTON [facility] Start: 02-25-2022 End: 02-26-[address] COURTNEY FULTON Facility:[facility] Start: 02-18-2022 End: 02-19-[address] COURTNEY FULTON Facility:[facility] Start: 02-18-2022 End: 02-19-2022 Encounter for [...] [facility] [address] [address] [address] Dawna Murillo Start: 05-31-[address] ARLETH FULTON Comment on above: Performed By: #### P SASC #### [facility] [address] [address] [address] Dawna Murillo Payers Date Payer Category Payer Unknown [id number] 2.16.84 [id number] 1970 Unknown [id number] 2.16.84 [id number] 1971 Unknown [id number] 2.16.84 [id number] 1971 Unknown [id number] 2.16.84 [id number] 1971 Unknown [id number] 2.16.84 [id number] 1971 Unknown [id number] 2.16.8 [id number] 1958 Self-pay 1958 Unknown [id number] Summary Purpose Family History No Family History Records FoundNo Family History Records Found Advance Directives No Advanced Directives Records FoundNo Advanced Directives Records Found Additional Source Comments (unrecognized sect ion and content) No Status Records FoundNo Status Records Found INFORMATION SOURCE (unrecogn ized section and content) DATE CREATED AUTHOR 02/28/2022 [facility] DATE CREATED AUTHOR AUTHOR'S ORGANIZ ATION 02/27/2024 [facility] FOR RECORDS PERTAINING TO PATIENTS WHO [...] BE BASED ON THE PRIMARY CLINICAL RECORDS. [employer] provides no warranty or guarantee of the accuracy or completeness of information in this document.
[2024-03-01 10:23] LABS: Basophils Absolute Auto 0.1 10^3/uL (0.0-0.1); Basophils Percent Auto 0.9 % (0.2-2.0); Eosinophils Absolute Auto 0.6 10^3/uL (0.0-0.7); Eosinophils Percent Auto 4.2 % (0.9-7.0); Hematocrit 42.8 % (42.0-54.0); Hemoglobin 14.5 g/dL (14.0-18.0); Immature Granulocytes Abs Auto 0.04 10^3/uL (0.00-0.03); Immature Granulocytes Pct Auto 0.3 % (0.0-0.5); Lymphocytes Absolute Auto 4.2 10^3/uL (1.2-3.8); Lymphocytes Percent Auto 28.4 % (20.5-60.0); Mean Corpuscular HGB Conc 33.9 g/dL (29.9-35.2); Mean Corpuscular Hemoglobin 28.8 pg (25.9-34.0); Mean Corpuscular Volume 84.9 fL (80.0-94.0); Mean Platelet Volume 8.8 fL (9.5-13.5); Monocytes Percent Auto 7.1 % (1.7-12.0); Neutrophils Absolute Auto 8.7 10^3/uL (1.4-6.5); Neutrophils Percent Auto 59.1 % (43.0-75.0); Platelet Count 381 10^3/uL (150-450); Red Blood Count 5.04 10^6/uL (4.70-6.10); White Blood Count 14.7 10^3/uL (4.0-11.0)
== END 2024-03-01 10:10 | disposition home or self-care (01) ==
PROVIDERS: PCP Family Medicine; Visit Provider Family Medicine
DX: D72.829 Elevated white blood cell count, unspecified (principal)
CPT/HCPCS: 36415; 85025

== ENCOUNTER 2024-03-28 07:41 | Outpatient (OUT) | payer OTHER, SELFPAY ==
--- NOTE | 2024-03-28 07:43 | CT_ITS ---
The [address] [address] Patient Name: KAELA BEARD MRN: [id number] date: 1970 Sex: M Assigned Patient Location: CT Current Patient Location: CT Accession/Order Number: [id number] Exam Date: 03/28/2024 10:11 Report Date: 03/28/2024 10:27 At the request of: COURTNEY FULTON MD Procedure: CT lung screening low-dose LOW-DOSE SCREENING CHEST CT WITHOUT CONTRAST COMPARISON: 02/25/2022 CLINICAL DATA: current smoker with 15 year history of tobacco use Spiral axial unenhanced low-dose images were obtained through the chest. Images were reviewed using both narrow and wide window settings. This CT exam was performed using one or more following dose reduction techniques: Automated exposure control, adjustment of the mA and/or kV according to patient size, or use of iterative reconstruction technique. The heart is normal in size. No pericardial effusion is present. There is minimal coronary disease. There are similar mediastinal lymph nodes. Calcified left hilar granulomas are seen. Endplate spurring is present at the spine. Similar ringlike sclerotic areas are identified involving bilateral ribs. There is obstructive lung disease with airspace lucencies and subpleural blebs. Scarring is noted at the lung apices with similar associated nodularity. There is increasing linear density at the lower lungs which could be atelectasis and/or scarring. No additional consolidation, pleural effusion or pneumothorax is noted. There are bilateral upper lobe calcified granulomas. No developing pulmonary nodules are identified. Limited imaging through the upper abdomen suggest possible fatty infiltration of the liver. CT/CT lung screening low-dose IMPRESSION: OBSTRUCTIVE LUNG DISEASE. GRANULOMATOUS CHANGES. ATELECTASIS AND/OR SCARRING. NO DEVELOPING NODULARITY. Lung RADS category 2 - benign Twelve-month low-dose CT follow-up suggested. Impression dictated by: Erica Chowdary M.D.03/28/2024 10:27 AM Dictation Location: [place] [address] Electronically authenticated by: [id number] Y Date: 03/28/2024 10:27
--- OUTSIDE RECORDS SUMMARY | 2024-03-28 07:48 | XMS_ITS | CCD ---
Author Organization [facility] Care Team Providers Care Route Salesperson Name Role Phone FELICIA, DR VALDEZ Consulting Unavailable HOY, DR VALDEZ [...] VALDEZ Admitting Unavailable ALDA WATKINS Consulting Unavailable RolandyCourtney Primary Care Physician Booker FINE Attending Unavailable RolandyCourtney Referring Unavailable NILL, Booker Lima Referring Unavailable NILL, Booker Lima Attending Unavailable NILL, Booker Lima Admitting Unavailable Allergies Allergy Classification Reported Allergen(s) Allergy Type Date of Onset Reaction(s) Facility (2 sources) Acetaminophen / HYDROcodone; Translations: [Vicodin] Drug Allergy 04-20-19 14 [facility] Repository (1 source) Codeine Drug Allergy 04-20-19 14 [facility] Repository (2 sources) methylPREDNISolon e; Translations: [Medrol] Drug Allergy 04-20-19 14 [facility] Repository (2 sources) zolpidem; Translations: [Ambien] Drug Allergy 04-20-19 14 [facility] Repository (2 sources) Acetaminophen / HYDROcodone; Translations: [acetaminophen-hy drocodone] Drug Allergy Gastrointestinal irritation (disorder) [facility] (3 sources) Azithromycin; Translations: [azithromycin] Drug Allergy unknown [facility] (2 sources) methylPREDNISolon e; Translations: [methylprednisolo ne] Drug Allergy Seizure (finding) [facility] (2 sources) zolpidem; Translations: [zolpidem] Drug Allergy Weal (disorder) [facility] Medications Current Medications Medication Drug Class(es) Dates Sig (Normalized) Sig (Original) ferrous sulfate 325 mg oral tablet (2 sources) Start: 03-07-2024 take 1 tablet by mouth once daily ferrous sulfate 325 mg Tab 325 mg = 1 tab(s), Oral, Daily, Refills(s) 0 Start Date: 03/07/24 Status: Ordered hydrOXYzine hydrochloride 25 mg oral tablet (2 sources) Antihistamine Start: 02-26-2024 take 1 tablet by mouth twice daily hydrOXYzine hydrochloride 25 mg Tab 25 mg = 1 tab(s), Oral, BID, Refills(s) 0 Start Date: 02/26/24 Status: Ordered Multi Vitamins oral tablet (2 sources) Start: 03-07-2024 take 1 tablet by mouth once daily Multi Vitamins oral tablet 1 tab(s), Oral, Daily, Refill(s) 0 Start Date: 03/07/24 Status: Ordered pantoprazole 40 mg delayed release oral tablet (2 sources) Proton Pump Inhibitor Start: 02-26-2024 take 1 tablet by mouth once daily Protonix 40 mg Tab-DR 40 mg = 1 tab(s), Oral, Daily, Refills(s) 0 Start Date: 02/26/24 Status: Ordered sildenafil 100 mg oral tablet (2 sources) Phosphodiesterase 5 Inhibitor Start: 02-26-2024 take 1 tablet by mouth once daily sildenafil 100 mg Tab 100 mg = 1 tab(s), Oral, Daily, Refills(s) 0 Start Date: 02/26/24 Status: Ordered tamsulosin hydrochloride 0.4 mg oral capsule (2 sources) alpha-Adrenergic Jayleen Start: 02-26-2024 take 1 capsule by mouth once daily tamsulosin 0.4 mg Cap 0.4 mg = 1 cap(s), Oral, Daily, Refills(s) 0 Start Date: 02/26/24 Status: Ordered Problems Problem Classification Problem Date Documented Date Episodic/Chronic Deficiency and other anemia (2 sources) Anemia 02-26-2024 Episodic Esophageal disorders (2 sources) Gastroesophageal reflux disease 02-26-2024 Chronic Hyperplasia of prostate (2 sources) Benign prostatic hyperplasia 02-26-2024 Chronic Other and unspecified benign neoplasm (2 sources) Benign neoplasm of brain 02-26-2024 Chronic Other male genital disorders (2 sources) Impotence 02-26-2024 Chronic Other nutritional; endocrine; and metabolic disorders (2 sources) Overweight 02-26-2024 Episodic Other nutritional; endocrine; and metabolic disorders (2 sources) Overweight in adulthood with body mass index of 25 or more but less than 30 03-07-2024 Episodic Other screening for suspected conditions (not mental disorders or infectious disease) (4 sources) Encounter for screening for malignant neoplasm of prostate; Translations: [Other specified abnormal findings of blood chemistry] Onset: 06-01-2021 Episodic Substance-related disorders (2 sources) Smoker 03-02-2024 Chronic Comment on above: Added secondary to d ocumentation in Social History. Unclassified (2 sources) Patient encounter status 03-07-2024 Results Test Name Value Interpretation Reference Range Facility Main OR Intraoperative Recor don 03-17-2024 Main OR Intraoperative Record Main OR Intraoperative Record IntraOp Document Type FT Summary Primary Physician: Booker FINE MD Finalized Date/Time: 03/17/24 13:25:38 Pt. Name: JESÚSBryan KAELAANISH Velasquez/Sex: 1970 Male Med Rec #: [id number] Physician: Booker FINE MD Financial #: [id number] Pt. Type: O Room/Bed: / Admit/Disch: 03/14/24 07:42:21 - 03/14/24 23:59:59 Institution: Case Times FT Entry 1 Patient Times In Room 03/14/24 09:15:00 Out Room 03/14/24 09:35:00 Procedure Times Start 03/14/24 09:19:00 Stop 03/14/24 09:32:00 Anesthesia Times Start 03/14/24 09:15:00 Stop 03/14/24 09:35:00 Time at [place] 03/14/24 09:24:00 Last Modified By: Rafaela CHEN, Kathy Reyes 03/14/24 09:35:20 General Comments: 03/17/24 Chart opened to review and send charges [facility]oth CSFA Case Attendance FT Entry 1 Entry 2 Entry 3 Case Attendee Anthony Cross MD, Booker Russo RN, Kathy Reyes Role Performed Anesthesiologist Surgeon - Primary Restorative Rehab Aide - Primary Steel Post Installer Time In 03/14/24 09:15:00 03/14/24 09:15:00 03/14/24 09:15:00 Time Out 03/14/24 09:35:00 03/14/24 09:35:00 03/14/24 09:35:00 Procedure COLONOSCOPY(.) COLONOSCOPY(.) COLONOSCOPY(.) Comments Dr. Go supervising case Last Modified By: Rafaela RN, Kathy Russo RN, Kathy Russo RN, Kathy Reyes 03/14/24 09:35:22 F 03/14/24 09:35:22 F 03/14/24 09:35:22 Entry 4 Case Attendee Nasir Scales Role Performed Scrub - Primary Time In 03/14/24 09:15:00 Time Out 03/14/24 09:35:00 Procedure COLONOSCOPY(.) Comments Last Modified By: Kathy Russo RN 03/14/24 09:35:22 Perioperative Protocols FT Pre-Care Text: Implements protective measures prior to operative or invasive procedure, confirms identity before the operative or invasive procedure, verifies operative procedure, surgical site, and laterality Entry 1 Procedure(s) COLONOSCOPY(.) Patient Identity Birthday, ID Band Verified (select at Check, Patient least 2): Participation Consents / H and P Anesthesia Consent, Operative Site N/A Verified H&P, Surgery/Procedure Marking Verified Consent Surgical Site No Laterality Verified n/a Verified Procedure Verified Yes Correct Patient Yes Position Verified Availability Equipment, Medication Prep Dry n/a Verified (If Applicable) PreOp Antibiotic No Time Out Anthony Cross, Given Participants FAVIAN ROBERTS, Rafaela Eaton RN, Yordy Riddle Micala E Time Out Complete 03/14/24 09:19:00 Outcomes Met? Yes Last Modified By: Kathy Russo RN 03/14/24 09:19:31 Post-Care Text: The patient is free from signs and symptoms of injury caused by extraneous objects Allergy Information FT Pre-Care Text: Verifies allergies Entry 1 Allergies Reviewed? Yes Allergies Reviewed Self/Patient With Outcomes Met? Yes Last Modified By: Kathy Russo RN 03/14/24 09:19:39 Post-Care Text: The patient received appropriate medication(s) safely administered during the perioperative period Surgical Procedures FT Entry 1 Procedure Description Procedure COLONOSCOPY Modifiers . Surgeon Description Colonoscopy Primary Procedure Yes Primary Surgeon Booker FINE MD 03/14/24 09:19:00 Stop 03/14/24 09:32:00 Anesthesia Type General Surgical Service General Wound Class 2 - Clean-Contaminated Last Modified By: Kathy Russo RN 03/14/24 09:33:09 General Case Data FT Pre-Care Text: Classifies surgical wound, implements aseptic technique, initiates traffic control Entry 1 Case Information OR ENDO 2 FT Case Level Level 2 Wound Class 2 - Clean-Contaminated Specialty General ASA Class 2 Preop Diagnosis Screening Postop Same As Preop No Postop Diagnosis Normal colonoscopy Outcomes Met? Yes Last Modified By: Kathy Russo RN 03/14/24 09:33:19 Post-Care Text: The patient is free from signs and symptoms of infection Skin Assessment (Pre Procedure) FT Pre-Care Text: Implements protective measures to prevent skin/ tissue injury due to thermal or mechanical sources Evaluates for signs and symptoms of physical injury to skin and tissue Entry 1 Skin Integrity Intact, [place], Warm, & Skin Abnormality No Dry Outcomes Met? Yes Last Modified By: Kathy Russo RN 03/14/24 09:20:25 Post-Care Text: The patient is free from signs and symptoms of injury caused by extraneous objects Patient Positioning FT Pre-Care Text: Identifies physical alterations that require additional precautions for procedure-specific positioning, verifies presence of prosthetics or corrective devices, positions the patient, evaluates the patient for signs and symptoms of injury as a result of positioning Entry 1 Procedure COLONOSCOPY(.) Body Position Lateral, right side up Feet Uncrossed? Yes Left Arm Position Resting at Side Right Arm Position Resting at Side Left Leg Position Extended Right Leg Position Extended Positioning Device S (more content not included)... Normal [facility] Reminderson 03-17-2024 Reminders Reminders From: Violette Henderson LPN To: N - Clinical; Sent: 03/17/2024 09:19:32 EST Show up: 02/11/2034 07:00:00 EST Subject: colonoscopy recall Due Date/Time: 03/14/2034 07:00:00 EST Reminder/Recall Patient due for screening colonoscopy 03/14/2034. Normal [facility] Discharge Instructionson Discharge Instructions Discharge Instructions KAELA BEARD :1970 Visit Date:03/14/2024 Inpatient Discharge Instructions Your Care Team Admitting Physician - Booker FINE MD Referring Physician - Booker FINE MD Reason for Your Visit SCREENING Your Diagnosis Encounter for screening colonoscopy for [id number] patient This Is Your Medications List ferrous sulfate (ferrous sulfate 325 mg Tab) hydrOXYzine (hydrOXYzine hydrochloride 25 mg Tab) multivitamin (Multi Vitamins oral tablet) pantoprazole (Protonix 40 mg Tab-DR) sildenafil (sildenafil 100 mg Tab) tamsulosin (tamsulosin 0.4 mg Cap) Procedure History Appendectomy, Brain tumor, Left knee arthroscopy, Repair of inguinal hernia, Rotator cuff repair. What to do next Instructions From Your Doctor Event Name Event Result Discharge Activity Resume normal activities in 24 hours, Arrange for a responsible adult supervision for 24 hours Discharge Restrictions No driving for 24 hrs, Do not operate machinery or tools, Do not make important decisions for 24 hours, Do not drink alcoholic beverages for 24 hours Discharge Diet(s) Regular Call Your Doctor For Persistent or heavy bleeding, Temperature above 101.5 degrees, Redness, swelling, or pus at operative site, Severe pain at the operative site, Persistent vomiting Discharge Instructions Discharge Instructions New Follow Up Appointments after Discharge Follow Up with Booker FINE When: Only if needed Where: [address] [place], [place] [address], [address] [address]- Business (1) Medications What How Much When Instructions Next Dose Unchanged ferrous sulfate (ferrous sulfate 325 mg Tab) 1 Tablets By Mouth Every day Unchanged hydrOXYzine (hydrOXYzine hydrochloride 25 mg Tab) 1 Tablets By Mouth 2 times a day Unchanged multivitamin (Multi Vitamins oral tablet) 1 Tablets By Mouth Every day Unchanged pantoprazole (Protonix 40 mg Tab-DR) 1 Tablets By Mouth Every day Unchanged sildenafil (sildenafil 100 mg Tab) 1 Tablets By Mouth Every day Unchanged tamsulosin (tamsulosin 0.4 mg Cap) 1 Capsules By Mouth Every day Test Results No qualifying data available. Allergies Ambien (Hives) Medrol (Seizure) Vicodin (Gastrointestinal upset) Zithromax (unknown) Problems Ongoing - Any problem that you are currently receiving treatment for. Anemia Benign neoplasm of brain BMI 28.0-28.9,adult BPH (benign prostatic hyperplasia) Erectile dysfunction Gastroesophageal reflux disease Overweight Screening for malignant neoplasm of colon Smoker Education Materials Colonoscopy Care After Surgery Please read the instructions outlined below and refer to this sheet in the next few weeks. These discharge instructions provide you with general information on caring for yourself after you leave the hospital. Your doctor may also give you specific instructions. While your treatment has been planned according to the most current medical practices available, unavoidable complications occasionally occur. If you have any problems or questions after discharge, please call your doctor. ACTIVITY You may resume your regular activity, but move at a slower pace for the next 24 hours. Take frequent rest periods for the next 24 hours. Walking will help get rid of the air and reduce the bloated feeling in your abdomen (belly). No driving for 24 hours (because of the anesthesia (medicine) used during the test). You may shower. Do not sign any important legal documents or operate any machinery for 24 hours (because of the anesthesia used during the test). NUTRITION Drink plenty of fluids. You may resume your normal diet as instructed by your doctor. Begin with a light meal and progress to your normal diet. Heavy or fried foods are harder to digest and may make you feel nauseated (sick to your stomach). Avoid alcoholic beverages for 24 hours or as instructed. MEDICATIONS You may resume your normal medications unless your doctor tells you otherwise. WHAT YOU CAN EXPECT TODAY Some feelings of bloating in the abdomen. Passage of more gas than usual. Spotting of blood in your stool or on the toilet paper. FOLLOW-UP Your doctor will discuss the results of your test with you. SEEK IMMEDIATE MEDICAL ATTENTION IF: There is more than a spotting of blood in your stool. There is abdominal distention (your abdomen is swollen). There is vomiting. You have a temperature over 101.5 F. There is abdominal pain or discomfort that is severe or gets worse throughout the day. Common Emergency Awareness Tips IS IT A STROKE? Act FAST and Check for these signs: FACE Does the face look uneven? ARM Does one arm drift down? SPEECH Does their speech sound strange? TIME Call at any sign of stroke Heart Attack Signs Chest discomfort: Most heart attacks involve discomfort in the center of the chest and lasts more (more content not included)... Normal [facility] Comment on above: Result Comment: Elec tronically Signed By: La Prado I\.br\Date and Time Signed: 03/14/24 09:43 EST Inpatient Patient Summaryon 03-14-2024 Inpatient Patient Summary Inpatient Patient Summary [address] [address] [facility] Clinical Discharge Instructions PERSON INFORMATION Name: KAELA BEARD PHYSICIANS Admitting Physician: Booker FINE MD Attending Physician: Booker FINE MD PCP: Courtney Duarte MD Discharge Diagnosis: Encounter for screening colonoscopy for [id number] patient Comment: PATIENT EDUCATION INFORMATION Instructions: Medication Leaflets: Follow up: With: Address: When: Booker FINE [address] [place] [address], [facility] [address] [id number] [facility] (0) , only if needed MEDICATION LIST Medications to Continue with No Changes Other Medications ferrous sulfate (ferrous sulfate 325 mg Tab) 1 Tablets By Mouth every day. hydrOXYzine (hydrOXYzine hydrochloride 25 mg Tab) 1 Tablets By Mouth 2 times a day. multivitamin (Multi Vitamins oral tablet) 1 Tablets By Mouth every day. pantoprazole (Protonix 40 mg Tab-DR) 1 Tablets By Mouth every day. sildenafil (sildenafil 100 mg Tab) 1 Tablets By Mouth every day. tamsulosin (tamsulosin 0.4 mg Cap) 1 Capsules By Mouth every day. Comment: Normal [facility] Main OR PACU II Recordon Main OR PACU II Record Main OR PACU II Record PACU Phase II Document Type FT Summary Primary Physician: Booker FINE MD Finalized Date/Time: 03/14/24 09:59:18 Pt. Name: KAELA BEARD /Sex: 1970 Male Med Rec #: [id number] Physician: Booker FINE MD Financial #: [id number] Pt. Type: O Room/Bed: / Admit/Disch: 03/14/24 07:42:21 - Institution: Case Times PACU II FT Pre-Care Text: Identifies barriers to communication and implements measures to provide psychological support and determines knowledge level Develops individualized plan of care, and ensures continuity of care Maintains patient's dignity and privacy, and maintains patient confidentiality Identifies and reports philosophical, cultural, and spiritual beliefs and values Identifies individual values and wishes concerning care administers prescribed antibiotic therapy and immunizing agents as ordered, Evaluates postoperative tissue perfusion Implements thermoregulation measures, and monitors body temperature Evaluates postoperative respiratory status Evaluates postoperative cardiac status Evaluates postoperative neurological status Assesses pain control, collaborated in initiating patient-controlled analgesia and implements alternative methods of pain control Verifies allergies, administers prescribed medications and solutions, evaluates response to medications Entry 1 In PACU II 03/14/24 09:37:00 Discharge from PACU 03/14/24 09:57:00 II Outcomes Met? Yes Last Modified By: La Prado I 03/14/24 09:59:14 Post-Care Text: The patient demonstrates knowledge of the expected response to the operative or invasive procedure The patient's care is consistent with the individualized perioperative plan of care The patient's right to privacy is maintained The patient's value system, lifestyle, ethnicity, and culture are considered, respected, and incorporated into the perioperative plan of care The patient participates in decisions affecting his or her perioperative plan of care. The patient is free from signs and symptoms of infection The patient has wound/tissue perfusion consistent with or improved from baseline levels established preoperatively The patient is at or returning to normothermia at the conclusion of the immediate postoperative period The patient's respiratory function is consistent with or improved from baseline levels established preoperatively The patient's cardiovascular status is consistent with or improved from baseline levels established preoperatively The patient's neurological status is consistent with or improved from baseline levels established preoperatively The patient demonstrates and/or reports adequate pain control throughout the perioperative period The patient received appropriate medication(s), safely administered during the perioperative period Finalized By: La Prado I Document Signatures Signed By: La Prado I 03/14/24 09:59 Normal [facility] Main OR Preoperative Recordo n 03-14-2024 Main OR Preoperative Record Main OR Preoperative Record Holding Area Document Type FT Summary Primary Physician: Booker FINE MD Finalized Date/Time: 03/14/24 07:59:10 Pt. Name: KAELA BEARD Ann-Marie Isabel./Sex: 1970 Male Med Rec #: [id number] Physician: Booker FINE MD Financial #: [id number] Pt. Type: O Room/Bed: / Admit/Disch: 03/14/24 07:42:21 - Institution: Case Times Holding FT Pre-Care Text: Verifies consent for planned procedure, identifies individual values and wishes concerning care, includes family members in perioperative teaching Secures patient's records' belongings, and valuables, maintains patient's dignity and privacy, and maintains patient confidentiality Entry 1 In Holding 03/14/24 07:50:00 Outcomes Met? Yes Last Modified By: Duane Montoya RN 03/14/24 07:57:42 Post-Care Text: The patient participates in decisions affecting his or her perioperative plan of care The patient's right to privacy is maintained Surgery Checklist FT Entry 1 Patient Birthday, ID Band Procedure History and Physical, Identification: Check, Patient Verification: Surgical Consent, With Participation Patient NPO after Midnight: No Date/Time: 03/14/24 04:00:00 Results Reviewed clear-yellow liquid Personal Items: Jewelry Comments: bowel results Personal Items earrings, nipple rings, Limitations: none Comment: clothing, shoes Complaints of Pain: No Pain Comment: denies pain at this time Operative Site n/a Marked By: n/a Marking: Location: n/a Availability Equipment Verified: Does Patient Smoke Yes If Yes to Smoking. 1 pack per day Cigars or Cigarettes. How much per day? Patient states Yes Comment - Adult Dad- Norm postop adult Supervision supervision available Case Cancelled in No Holding Area see comments below for reason Last Modified By: Duane Montoya RN 03/14/24 07:59:08 General Comments: pt finished bowel prep at 0400, per patient nothing to eat or drink since MSRN Finalized By: Duane Montoya RN Document Signatures Signed By: Duane Montoya RN 03/14/24 07:59 Normal [facility] Outpatient Surgery Discharge Instructionon 03-14-2024 Outpatient Surgery Discharge Instruction Outpatient Surgery Discharge Instruction [place] [id number] Patient Discharge Instructions PERSON INFORMATION Name: KAELA BEARD Date of : 1970 Current Date: 03/14/2024 09:40:10 PHYSICIANS Admitting Physician: FAVIAN ROBERTS, Booker Lima Discharge Diagnosis: Encounter for screening colonoscopy for [id number] patient KAELA BEARD has been given the following list of follow-up instructions, prescriptions, and patient education materials: PATIENT FOLLOW-UP INFORMATION Diet: Regular Discharge Activity: Resume normal activities in 24 hours, Arrange for a responsible adult supervision for 24 hours Discharge Restrictions: No driving for 24 hrs, Do not operate machinery or tools, Do not make important decisions for 24 hours, Do not drink alcoholic beverages for 24 hours Call Your Doctor For: Persistent or heavy bleeding, Temperature above 101.5 degrees, Redness, swelling, or pus at operative site, Severe pain at the operative site, Persistent vomiting IF UNABLE TO CONTACT YOUR PHYSICIAN AND YOU FEEL IT IS AN EMERGENCY, GO TO THE NEAREST EMERGENCY ROOM OR CALL 911 I KAELA BEARD, have received the attached patient education materials/instruction s and have verbalized understanding: May we do a follow up call? Yes No I was present when discharge instructions were given Patient Signature Date Clinican/Nurse Signature Date Follow up: With: Address: When: Booker FINE [address], [address], [facility] [address] [id number] Business (1) , only if needed Pharmacy Information: You may receive a survey from [employer] asking you to rate your care experience. Your feedback is important and will help us understand what we do well and how we can improve the quality of care we provide to you, your loved ones and our community. It???s an honor to serve you. Thank you for choosing [facility] HERE ARE THE MEDICATION CHANGES THAT OCCURRED DURING YOUR HOSPITAL STAY Medications to Continue with No Changes Other Medications ferrous sulfate (ferrous sulfate 325 mg Tab) 1 Tablets By Mouth every day. hydrOXYzine (hydrOXYzine hydrochloride 25 mg Tab) 1 Tablets By Mouth 2 times a day. multivitamin (Multi Vitamins oral tablet) 1 Tablets By Mouth every day. pantoprazole (Protonix 40 mg Tab-DR) 1 Tablets By Mouth every day. sildenafil (sildenafil 100 mg Tab) 1 Tablets By Mouth every day. tamsulosin (tamsulosin 0.4 mg Cap) 1 Capsules By Mouth every day. PATIENT EDUCATION INFORMATION Instructions: Medication Leaflets: Normal [facility] Ambulatory Visit Summaryon 0 03-07-2024 Ambulatory Visit Summary Ambulatory Visit Summary KAELA BEARD :1970 Visit Date:03/07/2024 Ambulatory Visit Instructions Your Care Team Attending Physician - FAVIAN ROBERTS, Booker Lima Primary Care Physician - Felicia ROBERTS, Courtney Referring Physician - Courtney Duarte MD This Is Your Medications List Contact prescribing physician if questions or concerns ferrous sulfate (ferrous sulfate 325 mg Tab) hydrOXYzine (hydrOXYzine hydrochloride 25 mg Tab) multivitamin (Multi Vitamins oral tablet) pantoprazole (Protonix 40 mg Tab-DR) sildenafil (sildenafil 100 mg Tab) tamsulosin (tamsulosin 0.4 mg Cap) Procedures Performed Appendectomy, Brain tumor, Left knee arthroscopy, Repair of inguinal hernia, Rotator cuff repair. Discharge Vitals Heart Rate (Peripheral) 79 Respiratory Rate 16 Blood Pressure 122/84 Height 188 cm Height 74 in Weight 99.6 kg Weight 219.58 lb BMI 28.18 Medications What How Much When Instructions Unchanged ferrous sulfate (ferrous sulfate 325 mg Tab) 1 Tablets By Mouth Every day Contact prescribing physician if questions or concerns Unchanged hydrOXYzine (hydrOXYzine hydrochloride 25 mg Tab) 1 Tablets By Mouth 2 times a day Contact prescribing physician if questions or concerns Unchanged multivitamin (Multi Vitamins oral tablet) 1 Tablets By Mouth Every day Contact prescribing physician if questions or concerns Unchanged pantoprazole (Protonix 40 mg Tab-DR) 1 Tablets By Mouth Every day Contact prescribing physician if questions or concerns Unchanged sildenafil (sildenafil 100 mg Tab) 1 Tablets By Mouth Every day Contact prescribing physician if questions or concerns Unchanged tamsulosin (tamsulosin 0.4 mg Cap) 1 Capsules By Mouth Every day Contact prescribing physician if questions or concerns Allergies Ambien (Hives) Medrol (Seizure) Vicodin (Gastrointestinal upset) Zithromax (unknown) Problems Ongoing - Any problem that you are currently receiving treatment for. Anemia Benign neoplasm of brain BMI 28.0-28.9,adult BPH (benign prostatic hyperplasia) Erectile dysfunction Gastroesophageal reflux disease Overweight Smoker Patient Survey You may receive a survey via text or e-mail asking about your office visit. Please share your experience with us by completing your survey. We appreciate your feedback and thank you for choosing us for your care. Normal [facility] CT LUNG CANCER SCREENINGon 0 - CT LUNG CANCER SCREENING CT Low Dose [...] ALDA WATKINS Date: 2022-02-25 17:52 Normal [facility] INSULINon 02-20-2022 Insulin 23.0 uIU/mL Normal 2.6-24.9 [facility] Comment on above: Performed By: #### I NSULIN #### [facility] [address] [address] [address] Dawna Murillo CBC AUTO DIFFon 02-18-2022 BASO # 0.1 103/ul Normal 0.0-0.1 [facility] Comment on above: Performed By: #### C BC #### [facility] [address] [address] [address] Dawna Mruillo Basophils/100 WBC (Bld) 0.8 % Normal 0.2-2.0 [facility] Comment on above: Performed By: #### C BC #### [facility] [address] [address] [address] Dawna Murillo EO # 0.9 103/ul Critically high 0.0-0.7 [facility] Comment on above: Performed By: #### C BC #### [facility] [address] [address] [address] Dawna Murillo Eosinophils/100 WBC (Bld) 6.2 % Normal 0.9-7.0 [facility] Comment on above: Performed By: #### C BC #### [facility] [address] [place] [address] Dr. Dawna Murillo Erythrocyte distribution width (RBC) [Ratio] 13.1 % Normal 11.0-15.0 [facility] Comment on above: Performed By: #### C BC #### [facility] [address] [place] [address] Dr. Dawna Murillo Hematocrit (Bld) [Volume fraction] 47.3 % Normal 42.0-54.0 [facility] Comment on above: Performed By: #### C BC #### [facility] [address] [place] [address] Dr. Dawna Murillo Hemoglobin (Bld) [Mass/Vol] 16.0 g/dL Normal 14.0-18.0 [facility] Comment on above: Performed By: #### C BC #### [facility] [address] [place] [address] Dr. Dawna Murillo IG # 0.03 10e3/ul Normal 0.00-0.03 [facility] Comment on above: Performed By: #### C BC #### [facility] [address] [place] [address] Dr. Dawna Murillo IG % 0.2 % Normal 0.0-0.5 [facility] Comment on above: Performed By: #### C BC #### [facility] [address] [place] [address] Dr. Dawna Murillo LYMPH # 3.2 103/ul Normal 1.2-3.8 [facility] Comment on above: Performed By: #### C BC #### [facility] [address] [place] [address] Dr. Dawna Murillo Lymphocytes/100 WBC (Bld) 21.1 % Normal 20.5-60.0 [facility] Comment on above: Performed By: #### C BC #### [facility] [address] [place] [address] Dr. Dawna Murillo MANUAL DIFF REQ NO Normal [facility] Comment on above: Performed By: #### C BC #### [facility] [address] [address] [address] Dawna Murillo MCH (RBC) [Entitic mass] 28.8 pg Normal 25.9-34.0 [facility] Comment on above: Performed By: #### C BC #### [facility] [address] [place] [address] Dr. Dawna Murillo MCHC (RBC) [Mass/Vol] 33.8 g/dL Normal 29.9-35.2 [facility] Comment on above: Performed By: #### C BC #### [facility] [address] [place] [address] Dr. Dawna Murillo MCV (RBC) [Entitic vol] 85.2 fL Normal 80.0-94.0 [facility] Comment on above: Performed By: #### C BC #### [facility] [address] [place] [address] Dr. Dawna Murillo MONO # 0.9 103/ul Critically high 0.3-0.8 [facility] Comment on above: Performed By: #### C BC #### [facility] [address] [place] [address] Dr. Dawna Murillo Monocytes/100 WBC (Bld) 6.0 % Normal 1.7-12.0 [facility] Comment on above: Performed By: #### C BC #### [facility] [address] [place] [address] Dr. Dawna Murillo NEUT # 9.9 103/ul Critically high 1.4-6.5 [facility] Comment on above: Performed By: #### C BC #### [facility] [address] [place] [address] Dr. Dawna Murillo Neutrophils/100 WBC (Bld) 65.7 % Normal 43.0-75.0 [facility] Comment on above: Performed By: #### C BC #### [facility] [address] [place] [address] Dr. Dawna Murillo Platelet mean volume (Bld) [Entitic vol] 8.6 fL Critically low 9.5-13.5 [facility] Comment on above: Performed By: #### C BC #### [facility] [address] [address] [address] Danwa Murillo PLT 424 103/ul Normal 150-450 [facility] Comment on above: Performed By: #### C BC #### [facility] [address] [address] [address] Dawna Murillo RBC 5.55 106/ul Normal 4.70-6.10 [facility] Comment on above: Performed By: #### C BC #### [facility] [address] [address] [address] Dawna Murillo WBC 15.1 103/ul Critically high 4.0-11.0 [facility] Comment on above: Performed By: #### C BC #### [facility] [address] [place] [address] Dr. Dawna Murillo GLYCOHEMOGLOBIN A1Con 2022 ADA RECOMMENDATION SEE BELOW Normal [facility] Comment on above: Result Comment: ADA RECOMMENDED LIMIT 4.0 - 6.0 ADA THERAPEUTIC TARGET < 7.0 ACTION SUGGESTED > 7.0 Performed By: #### A 1C #### [facility] [address] [place] [address] Dr. Dawna Murillo Glucose [Mass/Vol] 105 mg/dL Normal [facility] Comment on above: Performed By: #### A 1C #### [facility] [address] [place] [address] Dr. Dawna Murillo HbA1c (Bld) [Mass fraction] 5.3 % Normal 4.5-6.2 [facility] Comment on above: Performed By: #### A 1C #### [facility] [address] [place] [address] Dr. Dawna Murillo LIPID PROFILEon 02-18-2022 CHOL-HDL RATIO NORM SEE BELOW Normal [facility] Comment on above: Result Comment: 3.3 - 4.4 LOW RISK 4.4 - 7.1 AVERAGE RISK 7.1 - 11.0 MODERATE RISK >11.0 HIGH RISK Performed By: #### O BSCRN #### [facility] [address] [place], [place] [id number] Dr. Dawna Murillo Cholesterol [Mass/Vol] 153 mg/dL Normal <=200 [facility] Comment on above: Performed By: #### O BSCRN #### [facility] [address] [address] [address] Dawna Murillo Cholesterol in HDL [Mass/Vol] 37 mg/dL Critically low 40-60 [facility] Comment on above: Performed By: #### O BSCRN #### [facility] [address] [address] [address] Dawna Murillo Cholesterol in LDL [Mass/Vol] 93.2 mg/dL Normal [facility] Comment on above: Performed By: #### O BSCRN #### [facility] [address] [address] [address] Dawna Murillo Cholesterol.total/Cho lesterol in HDL [Mass ratio] 4.1 {ratio} Normal [facility] Comment on above: Performed By: #### O BSCRN #### [facility] [address] [address] [address] Dawna Murillo HDL NORMAL > or = 60 mg/dl - LO W CARDIOVASCULAR RISK <40 mg/dl - HIGH CARDIOVASCULAR RISK Normal [facility] Comment on above: Performed By: #### O BSCRN #### [facility] [address] [address] [address] Dawna Murillo LDL CALC NORMAL SEE BELOW Normal [facility] Comment on above: Result Comment: <100 mg/dl OPTIMAL 100 - 129 mg/dl NEAR OR ABOVE OPTIMAL 130 - 159 mg/dl BORDERLINE HIGH 160 - 189 mg/dl HIGH >190 mg/dl VERY HIGH Performed By: #### O BSCRN #### [facility] [address] [address] [address] Dawna Murillo Triglyceride [Mass/Vol] 114 mg/dL Normal <=150 [facility] Comment on above: Performed By: #### O BSCRN #### [facility] [address] [address] [address] Dawna Murillo VLDL CALC 22.8 mg/dL Normal [facility] Comment on above: Performed By: #### O BSCRN #### [facility] [address] [address] [address] Dawna Murillo PROF 14(COMP METB)on 023 Albumin [Mass/Vol] 3.7 g/dL Normal 3.4-5.0 [facility] Comment on above: Performed By: #### O BSCRN #### [facility] [address] [address] [address] Dawna Murillo Albumin/Globulin [Mass ratio] 0.8 {ratio} Normal [facility] Comment on above: Performed By: #### O BSCRN #### [facility] [address] [place] [address] Dr. Dawna Murillo ALP [Catalytic activity/Vol] 112 U/L Normal 46-116 [facility] Comment on above: Performed By: #### O BSCRN #### [facility] [address] [place] [address] Dr. Dawna Murillo ALT [Catalytic activity/Vol] 24 U/L Normal 16-63 [facility] Comment on above: Performed By: #### O BSCRN #### [facility] [address] [place] [address] Dr. Dawna Murillo Anion gap [Moles/Vol] 13.6 mmol/L Normal [facility] Comment on above: Performed By: #### O BSCRN #### [facility] [address] [address] [address] Dawna Murillo AST [Catalytic activity/Vol] 18 U/L Normal 15-37 [facility] Comment on above: Performed By: #### O BSCRN #### [facility] [address] [address] [address] Dawna Murillo Bilirubin [Mass/Vol] 0.2 mg/dL Normal 0.2-1.0 [facility] Comment on above: Performed By: #### O BSCRN #### [facility] [address] [place] [address] Dr. Dawna Murillo Calcium [Mass/Vol] 9.2 mg/dL Normal 8.5-10.1 [facility] Comment on above: Performed By: #### O BSCRN #### [facility] [address] [address] [address] Dawna Murillo Chloride [Moles/Vol] 106 mmol/L Normal 98-107 [facility] Comment on above: Performed By: #### O BSCRN #### [facility] [address] [address] [address] Dawna Murillo CO2 [Moles/Vol] 28.2 mmol/L Normal 21.0-32.0 [facility] Comment on above: Performed By: #### O BSCRN #### [facility] [address] [address] [address] Dawna Murillo Creatinine [Mass/Vol] 0.91 mg/dL Normal 0.70-1.30 [facility] Comment on above: Performed By: #### O BSCRN #### [facility] [address] [place] [address] Dr. Dawna Murillo EGFR-AF CAMBODIAN >60 Normal >=60 [facility] Comment on above: Performed By: #### O BSCRN #### [facility] [address] [address] [address] Dawna Murillo EGFR-NON AF CAMBODIAN >60 Normal >=60 [facility] Comment on above: Performed By: #### O BSCRN #### [facility] [address] [address] [address] Dawna Murillo Globulin (S) [Mass/Vol] 4.4 g/dL Normal [facility] Comment on above: Performed By: #### O BSCRN #### [facility] [address] [address] [address] Dawna Murillo Glucose [Mass/Vol] 101 mg/dL Normal 74-106 [facility] Comment on above: Performed By: #### O BSCRN #### [facility] [address] [address] [address] Dawna Murillo Potassium [Moles/Vol] 3.8 mmol/L Normal 3.5-5.1 [facility] Comment on above: Performed By: #### O BSCRN #### [facility] [address] [place] [address] Dr. Dawna Murillo Protein [Mass/Vol] 8.1 g/dL Normal 6.4-8.2 [facility] Comment on above: Performed By: #### O BSCRN #### [facility] [address] [place] [address] Dr. Dawna Murillo Sodium [Moles/Vol] 144 mmol/L Normal 136-145 [facility] Comment on above: Performed By: #### O BSCRN #### [facility] [address] [place] [address] Dr. Dawna Murillo Urea nitrogen [Mass/Vol] 8.0 mg/dL Normal 7.0-18.0 [facility] Comment on above: Performed By: #### O BSCRN #### [facility] [address] [place] [address] Dr. Dawna Murillo Urea nitrogen/Creatinine [Mass ratio] 8.8 mg/mg Normal [facility] Comment on above: Performed By: #### O BSCRN #### [facility] [address] [place] [address] Dr. Dawna Murillo URIC ACID SERUMon 02-18-2022 Urate [Mass/Vol] 5.6 mg/dL Normal 3.5-7.2 [facility] Comment on above: Performed By: #### O BSCRN #### [facility] [address] [place] [address] Dr. Dawna Murillo OCC BLD IMMUNO SCREENon 05-08 OCCULT BLOOD Negative Normal NEGATIVE [facility] Comment on above: Performed By: #### O BSCRN #### [facility] [address] [place] [address] Dr. Dawna Murillo CBC AUTO DIFFon 05-31-2021 BASO # 0.1 103/ul Normal 0.0-0.1 [facility] Comment on above: Performed By: #### C BC #### [facility] [address] [place] [address] Dr. Dawna Murillo Basophils/100 WBC (Bld) 0.8 % Normal 0.2-2.0 [facility] Comment on above: Performed By: #### C BC #### [facility] [address] [place] [address] Dr. Dawna Murillo EO # 1.1 103/ul Critically high 0.0-0.7 [facility] Comment on above: Performed By: #### C BC #### [facility] [address] [place] [address] Dr. Dawna Murillo Eosinophils/100 WBC (Bld) 7.0 % Normal 0.9-7.0 [facility] Comment on above: Performed By: #### C BC #### [facility] [address] [place] [address] Dr. Dawna Murillo Erythrocyte distribution width (RBC) [Ratio] 13.0 % Normal 11.0-15.0 [facility] Comment on above: Performed By: #### C BC #### [facility] [address] [place] [address] Dr. Dawna Murillo Hematocrit (Bld) [Volume fraction] 46.1 % Normal 42.0-54.0 [facility] Comment on above: Performed By: #### C BC #### [facility] [address] [place] [address] Dr. Dawna Murillo Hemoglobin (Bld) [Mass/Vol] 15.3 g/dL Normal 14.0-18.0 [facility] Comment on above: Performed By: #### C BC #### [facility] [address] [place] [address] Dr. Dawna Murillo IG # 0.05 10e3/ul Critically high 0.00-0.03 [facility] Comment on above: Performed By: #### C BC #### [facility] [address] [place] [address] Dr. Dawna Murillo IG % 0.3 % Normal 0.0-0.5 [facility] Comment on above: Performed By: #### C BC #### [facility] [address] [place] [address] Dr. Dawna Murillo LYMPH # 4.0 103/ul Critically high 1.2-3.8 [facility] Comment on above: Performed By: #### C BC #### [facility] [address] [place] [address] Dr. Dawna Murillo Lymphocytes/100 WBC (Bld) 25.3 % Normal 20.5-60.0 [facility] Comment on above: Performed By: #### C BC #### [facility] [address] [place] [address] Dr. Dawna Murillo MANUAL DIFF REQ NO Normal [facility] Comment on above: Performed By: #### C BC #### [facility] [address] [place] [address] Dr. Dawna Murillo MCH (RBC) [Entitic mass] 29.1 pg Normal 25.9-34.0 [facility] Comment on above: Performed By: #### C BC #### [facility] [address] [place] [address] Dr. Dawna Murillo MCHC (RBC) [Mass/Vol] 33.2 g/dL Normal 29.9-35.2 [facility] Comment on above: Performed By: #### C BC #### [facility] [address] [place] [address] Dr. Dawna Murillo MCV (RBC) [Entitic vol] 87.8 fL Normal 80.0-94.0 [facility] Comment on above: Performed By: #### C BC #### [facility] [address] [place] [address] Dr. Dawna Murillo MONO # 0.9 103/ul Critically high 0.3-0.8 [facility] Comment on above: Performed By: #### C BC #### [facility] [address] [place] [address] Dr. Dawna Murillo Monocytes/100 WBC (Bld) 5.9 % Normal 1.7-12.0 [facility] Comment on above: Performed By: #### C BC #### [facility] [address] [place] [address] Dr. Dawna Murillo NEUT # 9.6 103/ul Critically high 1.4-6.5 [facility] Comment on above: Performed By: #### C BC #### [facility] [address] [address] [address] Dawna Murillo Neutrophils/100 WBC (Bld) 60.7 % Normal 43.0-75.0 [facility] Comment on above: Performed By: #### C BC #### [facility] [address] [address] [address] Dawna Murillo Platelet mean volume (Bld) [Entitic vol] 8.7 fL Critically low 9.5-13.5 [facility] Comment on above: Performed By: #### C BC #### [facility] [address] [place] [address] Dr. Dawna Murillo PLT 385 103/ul Normal 150-450 [facility] Comment on above: Performed By: #### C BC #### [facility] [address] [address] [address] Dawna Murillo RBC 5.25 106/ul Normal 4.70-6.10 [facility] Comment on above: Performed By: #### C BC #### [facility] [address] [address] [address] Dawna Murillo WBC 15.9 103/ul Critically high 4.0-11.0 [facility] Comment on above: Performed By: #### C BC #### [facility] [address] [place] [address] Dr. Dawna Murillo GLYCOHEMOGLOBIN A1Con 2021 ADA RECOMMENDATION SEE BELOW Normal [facility] Comment on above: Result Comment: ADA RECOMMENDED LIMIT 4.0 - 6.0 ADA THERAPEUTIC TARGET < 7.0 ACTION SUGGESTED > 7.0 Performed By: #### O BSCRN #### [facility] [address] [place] [address] Dr. Dawna Murillo Glucose [Mass/Vol] 108 mg/dL Normal [facility] Comment on above: Performed By: #### O BSCRN #### [facility] [address] [place] [address] Dr. Dawna Murillo HbA1c (Bld) [Mass fraction] 5.4 % Normal 4.5-6.2 [facility] Comment on above: Performed By: #### O BSCRN #### [facility] [address] [address] [address] Dawna Murillo LIPID PROFILEon 05-31-2021 CHOL-HDL RATIO NORM SEE BELOW Normal [facility] Comment on above: Result Comment: 3.3 - 4.4 LOW RISK 4.4 - 7.1 AVERAGE RISK 7.1 - 11.0 MODERATE RISK >11.0 HIGH RISK Performed By: #### C MP, LIPID #### [facility] [address] [address] [address] Dawna Murillo Cholesterol [Mass/Vol] 159 mg/dL Normal <=200 [facility] Comment on above: Performed By: #### C MP, LIPID #### [facility] [address] [address] [address] Dawna Murillo Cholesterol in HDL [Mass/Vol] 37 mg/dL Critically low 40-60 [facility] Comment on above: Performed By: #### C MP, LIPID #### [facility] [address] [address] [address] Dawna Murillo Cholesterol in LDL [Mass/Vol] 98.2 mg/dL Normal [facility] Comment on above: Performed By: #### C MP, LIPID #### [facility] [address] [address] [address] Dawna Murillo Cholesterol.total/Cho lesterol in HDL [Mass ratio] 4.3 {ratio} Normal [facility] Comment on above: Performed By: #### C MP, LIPID #### [facility] [address] [address] [address] Dawna Murillo HDL NORMAL > or = 60 mg/dl - LO W CARDIOVASCULAR RISK <40 mg/dl - HIGH CARDIOVASCULAR RISK Normal [facility] Comment on above: Performed By: #### C MP, LIPID #### [facility] [address] [address] [address] Dawna Murillo LDL CALC NORMAL SEE BELOW Normal [facility] Comment on above: Result Comment: <100 mg/dl OPTIMAL 100 - 129 mg/dl NEAR OR ABOVE OPTIMAL 130 - 159 mg/dl BORDERLINE HIGH 160 - 189 mg/dl HIGH >190 mg/dl VERY HIGH Performed By: #### C MP, LIPID #### [facility] [address] [place] [address] Dr. Dawna Murillo Triglyceride [Mass/Vol] 119 mg/dL Normal <=150 [facility] Comment on above: Performed By: #### C MP, LIPID #### [facility] [address] [place] [address] Dr. Dawna Murillo VLDL CALC 23.8 mg/dL Normal [facility] Comment on above: Performed By: #### C MP, LIPID #### [facility] [address] [place] [address] Dr. Dawna Murillo PERIPHERAL SMEARon 2 Pathologist Cyto stain Nom (Cvx/Vag) [ID] DR. ARMOND BARRERA Normal [facility] Comment on above: Result Comment: Mild neutropilia, Mild lymphocytosis with occassional atypical lymphocytes. Rule out infectious process. CPT 23472 Performed By: #### P ERSMR #### [facility] [address] [place] [address] Dr. Dawna Murillo PROF 14(COMP METB)on 022 Albumin [Mass/Vol] 3.6 g/dL Normal 3.4-5.0 [facility] Comment on above: Performed By: #### C MP, LIPID #### [facility] [address] [place] [address] Dr. Dawna Murillo Albumin/Globulin [Mass ratio] 0.9 {ratio} Normal [facility] Comment on above: Performed By: #### C MP, LIPID #### [facility] [address] [place] [address] Dr. Dawna Murillo ALP [Catalytic activity/Vol] 96 U/L Normal 46-116 [facility] Comment on above: Performed By: #### C MP, LIPID #### [facility] [address] [place] [address] Dr. Dawna Murillo ALT [Catalytic activity/Vol] 32 U/L Normal 16-63 [facility] Comment on above: Performed By: #### C MP, LIPID #### [facility] [address] [address] [address] Dawna Murillo Anion gap [Moles/Vol] 12.3 mmol/L Normal [facility] Comment on above: Performed By: #### C MP, LIPID #### [facility] [address] [address] [address] Dawna Murillo AST [Catalytic activity/Vol] 16 U/L Normal 15-37 [facility] Comment on above: Performed By: #### C MP, LIPID #### [facility] [address] [address] [address] Dawna Murillo Bilirubin [Mass/Vol] 0.3 mg/dL Normal 0.2-1.0 [facility] Comment on above: Performed By: #### C MP, LIPID #### [facility] [address] [address] [address] Dawna Murillo Calcium [Mass/Vol] 8.8 mg/dL Normal 8.5-10.1 [facility] Comment on above: Performed By: #### C MP, LIPID #### [facility] [address] [address] [address] Dawna Murillo Chloride [Moles/Vol] 104 mmol/L Normal 98-107 [facility] Comment on above: Performed By: #### C MP, LIPID #### [facility] [address] [address] [address] Dawna Murillo CO2 [Moles/Vol] 26.6 mmol/L Normal 21.0-32.0 [facility] Comment on above: Performed By: #### C MP, LIPID #### [facility] [address] [address] [address] Dawna Murillo Creatinine [Mass/Vol] 0.76 mg/dL Normal 0.70-1.30 [facility] Comment on above: Performed By: #### C MP, LIPID #### [facility] [address] [address] [address] Dawna Murillo EGFR-AF CAMBODIAN >60 Normal >=60 [facility] Comment on above: Performed By: #### C MP, LIPID #### [facility] [address] [address] [address] Dawna Murillo EGFR-NON AF CAMBODIAN >60 Normal >=60 [facility] Comment on above: Performed By: #### C MP, LIPID #### [facility] [address] [address] [address] Dawna Murillo Globulin (S) [Mass/Vol] 3.8 g/dL Normal [facility] Comment on above: Performed By: #### C MP, LIPID #### [facility] [address] [address] [address] Dawna Murillo Glucose [Mass/Vol] 117 mg/dL Critically high 74-106 [facility] Comment on above: Performed By: #### C MP, LIPID #### [facility] [address] [place] [address] Dr. Dawna Murillo Potassium [Moles/Vol] 3.9 mmol/L Normal 3.5-5.1 [facility] Comment on above: Performed By: #### C MP, LIPID #### [facility] [address] [address] [address] Dawna Murillo Protein [Mass/Vol] 7.4 g/dL Normal 6.1-8.2 [facility] Comment on above: Performed By: #### C MP, LIPID #### [facility] [address] [place] [address] Dr. Dawna Murillo Sodium [Moles/Vol] 139 mmol/L Normal 136-145 [facility] Comment on above: Performed By: #### C MP, LIPID #### [facility] [address] [address] [address] Dawna Murillo Urea nitrogen [Mass/Vol] 14.0 mg/dL Normal 7.0-18.0 [facility] Comment on above: Performed By: #### C MP, LIPID #### [facility] [address] [address] [address] Dawna Murillo Urea nitrogen/Creatinine [Mass ratio] 18.4 mg/mg Normal [facility] Comment on above: Performed By: #### C MP, LIPID #### [facility] [address] [place] [address] Dr. Dawna Murillo Vital Signs Date Time Vital Sign Value Performing Clinician Shailesh marley 03-14-2024 09:52-0500 Diastolic blood pressure 70 mm[Hg] Booker NILL [facility] 03-14-2024 09:52-0500 Heart rate 58 /min Booker NILL [facility] 03-14-2024 09:52-0500 Mean blood pressure 84 mm[Hg] Booker NILL [facility] 03-14-2024 09:52-0500 Respiratory rate 17 /min Booker NILL [facility] 03-14-2024 09:52-0500 SaO2% (BldA) [Mass fraction] 98 % Booker NILL [facility] 03-14-2024 09:52-0500 Systolic blood pressure 113 mm[Hg] Booker NILL [facility] 03-14-2024 09:37-0500 Body temperature 97.52 [degF] Booker NILL [facility] 03-14-2024 09:37-0500 Diastolic blood pressure 67 mm[Hg] Booker NILL [facility] 03-14-2024 09:37-0500 Heart rate 74 /min Booker NILL [facility] 03-14-2024 09:37-0500 Mean blood pressure 76 mm[Hg] Booker NILL [facility] 03-14-2024 09:37-0500 Respiratory rate 18 /min Booker NILL [facility] 03-14-2024 09:37-0500 SaO2% (BldA) [Mass fraction] 97 % Booker NILL [facility] 03-14-2024 09:37-0500 Systolic blood pressure 94 mm[Hg] Booker NILL [facility] 03-14-2024 09:35-0500 Respiratory rate 15 /min Booker NILL [facility] 03-14-2024 09:33-0500 Diastolic blood pressure 61 mm[Hg] Booker NILL [facility] 03-14-2024 09:33-0500 Systolic blood pressure 93 mm[Hg] Booker NILL [facility] 03-14-2024 09:30-0500 Heart rate 70 /min Booker NILL [facility] 03-14-2024 09:30-0500 Respiratory rate 15 /min Booker NILL [facility] 03-14-2024 09:30-0500 SaO2% (BldA) [Mass fraction] 99 % Booker NILL [facility] 03-14-2024 09:25-0500 Respiratory rate 15 /min Booker NILL [facility] 03-14-2024 07:55-0500 Blood Pressure Location Booker NILL [facility] 03-14-2024 07:55-0500 Body temperature 98.06 [degF] Booker NILL [facility] 03-14-2024 07:55-0500 Respiratory rate 16 /min Booker NILL [facility] 03-07-2024 07:57-0500 Blood Pressure Location Booker NILL [facility] [place] 03-07-2024 07:57-0500 Diastolic blood pressure 84 mm[Hg] Booker NILL [facility] [place] 03-07-2024 07:57-0500 Heart rate 79 /min Booker NILL [facility] 03-07-2024 07:57-0500 Respiratory rate 16 /min Booker NILL [facility] 03-07-2024 07:57-0500 Systolic blood pressure 122 mm[Hg] Booker NILL [facility] Encounters Encounter Date Encounter Type Care Provider Facility Start: 03-14-2024 End: 03-14-2024 ambulatory Booker R NILL [place] Start: 03-14-2024 End: 03-14-2024 Patient encounter procedure Booker R NILL [facility] Start: 03-07-2024 End: 03-07-2024 ambulatory Booker R NILL Facility:[facility] Start: 03-07-2024 End: 03-07-2024 Patient encounter procedure Booker R NILL [facility] Start: 02-26-2024 ambulatory Bokoer NILL Facility:[facility] Start: 02-25-2024 ambulatory Booker DE SOUZAL Facility:[facility] Start: 02-25-2022 Encounter for genera l adult medical examination without abnormal findings DR COURTNEY DUARTE [facility] Start: 02-25-2022 End: 02-26-[address] COURTNEY DUARTE Facility:[facility] Start: 02-18-2022 End: 02-19-[address] COURTNEY DUARTE Facility:[facility] Start: 02-18-2022 End: 02-19-2022 Encounter for general adult medical examination without abnormal findings DR COURTNEY DUARTE Facility:[facility] Start: 06-30-[address] COURTNEY DUARTE Facility :[facility] Start: 06-04-2021 End: 06-04-[address] COURTNEY DUARTE Facility:[facility] Start: 05-31-2021 End: 06-01-[address] COURTNEY DUARTE Facility:[facility] Procedures Date Procedure Procedure Detail Performing Clinician Start: 03-14-2024 Colonoscopy Booker SHAW IGNACIO Start: 02-18-[address] ARLETH DUARTE Comment on above: Performed By: #### O BSCRN #### [facility] [address] [place] [address] Dr. Dawna Murillo Start: 05-31-[address] ARLETH DUARTE Comment on above: Performed By: #### P SASC #### [facility] [address] [place] [address] Dr. Dawna Murillo Appendectomy Booker FAVIAN Arthroscopy of left knee joint Booker FINE Comment on above: x2 Neoplasm of brain (disorder) Booker NOLVIAL Repair of inguinal hernia Mi chamalena NOLVIAL Repair of musculoten dinous cuff of shoulder Booker DE SOUZAL Immunizations Immunization Date Immunization Notes Care Provider [facility] 11-28-2023 influenza virus vaccine, unspecified formulation Booker FAVIAN [facility] [place] 08-06-2020 SARS-CoV-2 (COVID-19 ) mRNA BNT-162b2 vax Booker DE SOUZAL [facility] 07-16-2020 SARS-CoV-2 (COVID-19 ) mRNA BNT-162b2 vax Booker NILL [facility] Payers Date Payer Category Payer Unknown [id number] 2.16.84 [id number] 1970 Unknown [id number] 2.16.84 [id number] 1970 Unknown [id number] 2.16.84 [id number] 1971 Unknown [id number] 2.16.84 [id number] 1971 Unknown [id number] 2.16.84 [id number] 1970 Unknown [id number] 2.16.8 [id number] 1970 Unknown [id number] 2.16.8 [id number] 1958 Self-pay 1958 Unknown [id number] Social History Date Type Detail Facility Start: 03-07-2024 Tobacco smoking status Heavy t obacco smoker (finding) [facility] Sex Assigned At Male [facility] Functional Status Date Assessment Result Facility 03-14-2024 Functional Status N/A [facility] 03-07-2024 Functional Status N/A [facility] Clinical Notes 03-07-2024 to 03-20-2024 Note Date & Type Note Facility 03-20-2024 Note Progress Note-Physic tania Patient: KAELA BEARD Age: 54 years Sex: Male : 1970 Associated Diagnoses: None Author: Donavan ROBERTS, Booker Narayan Postoperative Information Postoperative disposition: Postoperative disposition: To PACU. Optimetrix number Anesthetic utilized: General. Health Status Allergies: Allergic Reactions (Selected) Severity Not Documented Ambien- Hives. Zithromax- Unknown. Nonallergic Reactions (Selected) Severity Not Documented Medrol- Seizure. Vicodin- Gastrointestinal upset. Physical Examination VS/Measurements Pain Assessment: Controlled. General: Awake, Alert, Appropriate. Respiratory: Adequate air exchange. Cardiovascular: Stable, Normal peripheral perfusion. Neurological: Normal sensory function, Normal motor function. Assessment Anesthetic outcome No anesthetic complications noted. Adequate pain relief. able to void without difficulty, able to ambulate with assist, tolerating PO intake, no N/V. Review / Management Condition: Stable. Plan Transfer/Discharge: Transfer/Discharge Discharge when meets criteria ( From PACU to floor ). [facility] Comment on above: Result Comment: Elec tronically Signed By: Booker Go MD\.br\Date and Time Signed: 03/20/24 11:38 EST 03-14-2024 Evaluation + Plan note Extrac sari from: Title:ANES Pre-operative Note - Endo Author:Booker Pruitt MD Date:03/14/24 Plan [place] [employer] (ASA) physical status classification: Class II. Anesthetic Preoperative Plan: Anesthesia General, and -TIVA. [facility] 02-07-2025 NoteColonoscopy Procedure Report Patient: KAELA BEARD Age: 54 years Sex: Male : 1970 Associated Diagnoses: None Author: Booker FINE MD Pre-Procedure Procedure Date 03/14/2024 09:40:00 . Procedure Type: Colonoscopy. Procedure provider Booker Fine MD. Referred by Courtney Duarte MD. Current history and physical Documented on chart. Colorectal neoplasm risk assessment Average risk. Informed Consent After discussing the rationale, risks and benefits, and alternatives to this procedure, the patient provided signed consent for the procedure. Pre-procedure diagnosis: Age 50 years or over. ASA Classification: Class II. . Monitoring: See anesthesia record. . Procedure The procedure was performed in the hospital. See anesthesia record for sedation given during procedure. Rectal exam was performed and was normal. The patient was positioned starting in the left lateral decubitus position. Endoscope type used was an adult-size. The endoscope was lubricated then introduced through the anus. The scope was advanced to the cecum verified by photographing the appendiceal orifice, verified by photographing the ileocecal valve. No difficulties encountered during the procedure. The bowel preparation quality was good and was adequate (see polyps greater than or equal to 6 millimeters). The patient tolerated the procedure well. Images Procedure images: anal canal ileocecal valve appendiceal orifice . Post-Procedure Complications: none. Estimated blood loss: none. Specimens: none. Devices/ implants: none left in place. Impression and Plan Diagnosis: Encounter for screening colonoscopy for [id number] patient (ICD10- CM Z12.11, Discharge, Medical). Course: Progressing as expected. Recommendations: Repeat colonoscopy:: In 10 years. Follow-up:: if problems/questions. Diet:: Regular diet. Medication resumption:: Continue current medications. Return to activities:: After 24 hours. Education and Follow-up: Counseled: [facility]Other Comment: Missing Attachment - attachment storage system not supported [id number] Can be viewed in source system Missing Attachment - attachment storage system not supported [id number] Can be viewed in source systemMissing Attachment - attachment storage system not supported [id number] Can be viewed in source [id number] Hospital Discharge instructions Patient Education 03/14/2024 09:42:59 Colonoscopy, Care After Surgery Salam (CUSTOM) Colonoscopy Care After Surgery Please read the instructions outlined below and refer to this sheet in the next few weeks. These discharge instructions provide you with general information on caring for [facility] Your doctor may also give you specific instructions. While your treatment has been planned according to the most current medical practices available, unavoidable complications occasionally occur. If you have any problems or questions after discharge, please call your doctor. ACTIVITY You may resume your regular activity, but move at a slower pace for the next 24 hours. Take frequent rest periods for the next 24 hours. Walking will help get rid of the air and reduce the bloated feeling in your abdomen (belly). No driving for 24 hours (because of the anesthesia (medicine) used during the test). You may shower. Do not sign any important legal documents or operate any machinery for 24 hours (because of the anesthesia used during the test). NUTRITION Drink plenty of fluids. You may resume your normal diet as instructed by your doctor. Begin with a light meal and progress to your normal diet. Heavy or fried foods are harder to digestand may make you feel nauseated (sick to your stomach). Avoid alcoholic beverages for 24 hours or as instructed. MEDICATIONS You may resume your normal medications unless your doctor tells you otherwise. WHAT YOU CAN EXPECT TODAY Some feelings of bloating in the abdomen. Passage of more gas than usual. Spotting of blood in your stool or on the toilet paper. FOLLOW-UP Your doctor will discuss the results of your test with you. SEEK IMMEDIATE MEDICAL ATTENTION IF: There is more than a spotting of blood in your stool. There is abdominal distention (your abdomen is swollen). There is vomiting. You have a temperature over 101.5 F. There is abdominal pain or discomfort that is severe or gets worse throughout the day. Follow Up Care 03/07/2024 08:26:19 With:Booker FINE Address: [facility] [address], [address] [place] [id number]- Business (1) When: only if needed [facility] 02-07-2025 NotePatient Education - Text Colonoscopy Care After Surgery Please read the instructions outlined below and refer to this sheet in the next few weeks. These discharge instructions provide you with general information on caring for [facility] Your doctor may also give you specific instructions. While your treatment has been planned according to the most current medical practices available, unavoidable complications occasionally occur. If you have any problems or questions after discharge, please call your doctor. ACTIVITY You may resume your regular activity, but move at a slower pace for the next 24 hours. Take frequent rest periods for the next 24 hours. Walking will help get rid of the air and reduce the bloated feeling in your abdomen (belly). No driving for 24 hours (because of the anesthesia (medicine) used during the test). You may shower. Do not sign any important legal documents or operate any machinery for 24 hours (because of the anesthesia used during the test). NUTRITION Drink plenty of fluids. You may resume your normal diet as instructed by your doctor. Begin with a light meal and progress to your normal diet. Heavy or fried foods are harder to digestand may make you feel nauseated (sick to your stomach). Avoid alcoholic beverages for 24 hours or as instructed. MEDICATIONS You may resume your normal medications unless your doctor tells you otherwise. WHAT YOU CAN EXPECT TODAY Some feelings of bloating in the abdomen. Passage of more gas than usual. Spotting of blood in your stool or on the toilet paper. FOLLOW-UP Your doctor will discuss the results of your test with you. SEEK IMMEDIATE MEDICAL ATTENTION IF: There is more than a spotting of blood in your stool. There is abdominal distention (your abdomen is swollen). There is vomiting. You have a temperature over 101.5 F. There is abdominal pain or discomfort that is severe or gets worse throughout the day.[facility] NoteHistory and Physical Patient: KAELA BEARD Age: 54 years Sex: Male : 1970 Associated Diagnoses: None Author: Booker FINE MD Subjective no changes to [facility]Comment on above:Result Comment: Electronically Signed By: FAVIAN ROBERTS, Booker Lima\.br\Date and Time Signed: 03/14/24 09:15 [id number] NoteProgress Note-Physician Patient: KAELA BEARD Age: 54 years Sex: Male : 1970 Associated Diagnoses: None Author: Booker Go MD. Preoperative Information Anesthesia history: Patient history: No prior anesthetic problems. Informed consent: Signed by patient. Re-evaluation prior to induction: Initial evaluation reviewed: No significant change. Review of Systems Respiratory: Negative except as documented in history of present illness. Cardiovascular: Negative except as documented in history of present illness. Health Status Allergies: Allergic Reactions (Selected) Severity Not Documented Ambien- Hives. Zithromax- Unknown. Nonallergic Reactions (Selected) Severity Not Documented Medrol- Seizure. Vicodin- Gastrointestinal upset., Allergies (4) Active Severity Reaction Zithromax unknown Ambien Hives Vicodin Gastrointestinal upset Medrol Seizure Current medications: (Selected) Inpatient Medications Ordered Sodium Chloride 0.9% IV Christina 1000 mL 1,000 mL: 1,000 mL, IV, 20 mL/hr, Routine, Start date 03/14/24 6:39:00 EST, 50 hour(s), Total volume (mL): 1,000, 99.6 kg, 2.28, m2 Documented Medications Documented Multi Vitamins oral tablet: 1 tab(s), Oral, Daily, Refill(s) 0 Protonix 40 mg Tab-DR: 40 mg = 1 tab(s), Oral, Daily, Refills(s) 0 ferrous sulfate 325 mg Tab: 325 mg = 1 tab(s), Oral, Daily, Refills(s) 0 hydrOXYzine hydrochloride 25 mg Tab: 25 mg = 1 tab(s), Oral, BID, Refills(s) 0 sildenafil 100 mg Tab: 100 mg = 1 tab(s), Oral, Daily, Refills(s) 0 tamsulosin 0.4 mg Cap: 0.4 mg = 1 cap(s), Oral, Daily, Refills(s) 0, Home Medications (6) Active ferrous sulfate 325 mg Tab 325 mg = 1 tab(s), Oral, Daily hydrOXYzine hydrochloride 25 mg Tab 25 mg = 1 tab(s), Oral, BID Multi Vitamins oral tablet 1 tab(s), Oral, Daily Protonix 40 mg Tab-DR 40 mg = 1 tab(s), Oral, Daily sildenafil 100 mg Tab 100 mg = 1 tab(s), Oral, Daily tamsulosin 0.4 mg Cap 0.4 mg = 1 cap(s), Oral, Daily , Medications (1) Active Scheduled: (0) Continuous: (1) Sodium Chloride 0.9% 1,000 mL 1,000 mL, IV, 20 mL/hr PRN: (0) Problem list: All Problems Anemia / SNOMED CT 154068326 / Confirmed Benign neoplasm of brain / SNOMED CT 487958675 / Confirmed BMI 28.0-28.9,adult / SNOMED CT 3703192955 / Confirmed BPH (benign prostatic hyperplasia) / SNOMED CT 622678938 / Confirmed Erectile dysfunction / SNOMED CT 7058648894 / Confirmed Gastroesophageal reflux disease / SNOMED CT 783689646 / Confirmed Overweight / SNOMED CT 608683365 / Confirmed Screening for malignant neoplasm of colon / SNOMED CT 765136660 / Confirmed Smoker / SNOMED CT 577343394 / Confirmed Added secondary to documentation in Social History., Active Problems (9) Anemia Benign neoplasm of brain BMI 28.0-28.9,adult BPH (benign prostatic hyperplasia) Erectile dysfunction Gastroesophageal reflux disease Overweight Screening for malignant neoplasm of colon Smoker Histories Past Medical History: No active or resolved past medical history items have been selected or recorded. Procedure history: Rotator cuff repair ([id number]). Appendectomy (616610027). Repair of inguinal hernia (43716257). Brain tumor (3567620277). Left knee arthroscopy ([id number]). Comments: 02/26/2024 13:59 EST - Beatriz ROBERTSONN, Violette Baires x2 Social History Social & Psychosocial Habits Tobacco 03/14/2024 Tobacco Use: 10 or more cigarettes (1/ Smokeless tobacco use: Current vaping or e-cigar Type: Cigarettes, Vaping Tobacco use per day: 0.75 Started at age: 16.0 Years Smoking Cessation Yes . Physical Examination Vital Signs 03/14/2024 7:55 EST Temperature Temporal Artery 36.7 DegC Heart Rate Monitored 71 bpm Respiratory Rate Monitored 16 br/min Systolic Blood Pressure 119 mmHg Diastolic Blood Pressure 83 mmHg Blood Pressure Location Left arm SpO2 96 % Airway: Mallampati classification: II (soft palate, fauces, uvula visible). Respiratory: Lungs are clear to auscultation, Respirations are non-labored. Cardiovascular: Regular rhythm. Plan [place] [employer] (ASA) physical status classification: Class II. Anesthetic Preoperative Plan: Anesthesia General, and -TIVA.[facility]:Result Comment: Electronically Signed By: Donvaan ROBERTS, Booker Narayan\.br\Date and Time Signed: 03/14/2507:59 [id number] NoteGeneral Surgery Office/Clinic Note Chief Complaint consultation for anemia HPI Staff 54 year old male presents on consultation from Dr. Duarte for anemia. Labs completed 02/21 with H/H 13.8 and 41.4. Denies abdominal or rectal pain. No rectal bleeding or change in bowel habits. Denies nausea or vomiting. No unexplained weight loss. No previous colonoscopy. No known family history of col on cancer. History of Present Illness 54 yo male with h/o GERD, BPH, referred for colonoscopy; patient had mild anemia on recent labs; denies change in bms or blood in stools, no melena, no N/V or bowel changes; GERD well-controlled on Protonix, no dysphagia or early satiety, no break through symptoms; abdominal operations significant for appendectomy and RIHR; no previous colonoscopy; no asa use, occasional Aleve; smokes daily; no fmhx of GI malignancy or IBD. recently started taking an over the counter iron supplement. Review of Systems PHQ Score Initial Depression Screen Score: 0 SCORE ROS - Provider Constitutional: no fever, no sweats, no weight loss. Eyes: no glasses, no blurred vision, no visual loss. ENMT: no dentures, no hoarseness, no swallowing difficulties, no hearing loss, no ear infection(s),no nose bleeds. Cardiovascular: normal blood pressure, no chest pain, regular heartbeat, no heart murmur. Respiratory: no shortness of breath, no cough, no asthma, no wheezing. Gastrointestinal: no nausea, no vomiting, no diarrhea, no constipation, no blood in stool, no change in bowel habits, no abdominal pain, no hepatitis. Genitourinary: no kidney stones, no urine infection, no dysuria. Musculoskeletal: no pain, no weakness. Skin: no changing moles, no rash, no skin lumps. Neurologic: no seizures, no epilepsy, no headache. Psychiatric: no emotional or psychiatric problem. Heme/Lymph: no bleeding problems, no anemia, no blood clots, no transfusions. Allergy/Immunologic: no swollen lymph nodes/glands, no IV drug abuse. Other: Additional ROS info: Except as noted in the above Review of Systems and in the History of Present Illness, all other systems have been reviewed and are negative or noncontributory. Physical Exam Vitals & Measurements HR: 79(Peripheral) RR: 16 BP: 122/84 HT: 74 in HT: 188 cm WT: 99.6 kg WT: 219.58 lb BMI: 28.18 HEENT: normal conjunctiva, sclera clear, no scleral icterus, EOM intact, PERRLA, oral mucosa moist without lesions. Neck: trachea midline, no mass, symmetric, no thyromegaly or nodules, no adenopathy Respiratory: lungs CTA, respirations non labored. Cardiovascular: regular rate and rhythm, no murmur, no pedal edema or varicosities. Gastrointestinal: soft, non distended, no tenderness, no masses, no palpable hernias, diastasis recti no, no hepatosplenomegaly; normal bs Lymphatic: no cervical adenopathy, no supraclavicular adenopathy. Musculoskeletal: normal gait, digits and nails without infection, nodes, cyanosis, clubbing. Skin: no rashes, no lesions, no ulcers, no subcutaneous nodules, induration. Psychiatric/Neuro: oriented to time, place, person, judgement normal, affect appropriate for age, insight intact, no focal deficits. Tests: labs reviewed review of old records completed , Discussed surgical options, risks, and possible complications with patient. Assessment/Plan 1. Screening for malignant neoplasm of colon (Z12.11: Encounter for screening for malignant neoplasm of colon) plan colonoscopy under anesthesia, informed consent obtained; very mild anemia noted on screening labs. Follow-up No qualifying data available Problem List/Past Medical History Ongoing Anemia Benign neoplasm of brain BMI 28.0-28.9,adult BPH (benign prostatic hyperplasia) Erectile dysfunction Gastroesophageal reflux disease Overweight Screening for malignant neoplasm of colon Smoker Historical No qualifying data Procedure/Surgical History Appendectomy, Brain tumor, Left knee arthroscopy, Repair of inguinal hernia, Rotator cuff repair. Medications ferrous sulfate 325 mg Tab, 325 mg= 1 tab(s), Oral, Daily hydrOXYzine hydrochloride 25 mg Tab, 25 mg= 1 tab(s), Oral, BID Multi Vitamins oral tablet, 1 tab(s), Oral, Daily Protonix 40 mg Tab-DR, 40 mg= 1 tab(s), Oral, Daily sildenafil 100 mg Tab, 100 mg= 1 tab(s), Oral, Daily tamsulosin 0.4 mg Cap, 0.4 mg= 1 cap(s), Oral, Daily Allergies Ambien (Hives) Medrol (Seizure) Vicodin (Gastrointestinal upset) Zithromax (unknown) Social History Alcohol Past. Beer, Liquor. 3-5 times per week., 03/02/2024 Substance Abuse Past. Amphetamines, Cocaine, Hallucinogens/LSD, Marijuana, Prescription medications. Previous treatment: None., 03/02/2024 Tobacco 10 or more cigarettes (1/2 pack or more)/day in last 30 days Tobacco Use:. Current vaping or e-cigarette use Smokeless Tobacco Use:. Cigarettes, Vaping, 0.75 per day. Started age 15.0 Years. Yes, 03/07/2024 Family History Primary malignant neoplasm of lung: Father. Immunizations [facility] (more content not included)...[facility]Comment [facility] above: Result Comment: Electronically Signed By: FAVIAN ROBERTS, Booker Ortiz\Date and Time Signed: 03/07/24 08:36 ESTEvaluation + Plan note Future Appointments Appointment Date:03/14/2024 09:00:00 AM Scheduled Provider: Location:[facility] Surgical Services Appointment Type:Surgery FT [facility] Hospital course Narrative No data available for this section [facility] Hospital Discharge instructions No data available for this section [facility] Progress note No data available for this section [facility] Summary Purpose Family History No Family History Records Found No data available for this section No data available for this section No Family History Records Found Advance Directives No Advanced Directives Records FoundNo Advanced Directives Records Found Additional Source Comments (unrecognized sect ion and content) No Status Records FoundNo Status Records Found INFORMATION SOURCE (unrecogn ized section and content) DATE CREATED AUTHOR 02/28/2022 [facility] DATE CREATED AUTHOR AUTHOR'S ORGANIZ ATION 03/22/2024 [facility] Patient Care team informatio n (unrecognized section and content) Personnel Name: Courtney Duarte MD Address: Address: [address] [place] [address] Personnel Name: Courtney Duarte MD Address: Address: [address] [place] [address] FOR RECORDS PERTAINING TO PATIENTS WHO ARE [...] BE BASED ON THE PRIMARY CLINICAL RECORDS. [facility]. provides no warranty or guarantee of the accuracy or completeness of information in this document.
== END 2024-03-28 07:42 | disposition home or self-care (01) ==
LOC: CT 07:41
PROVIDERS: PCP Family Medicine; Visit Provider Family Medicine
DX: Z00.00 Encounter for general adult medical examination without abnormal findings (principal)
CPT/HCPCS: 71271